=== PATIENT | male | born 1950 | race Caucasian/White ===

== ENCOUNTER 2018-01-04 10:48 | Inpatient (IN) | payer OTHER ==
[~2018-01-04] VITALS: Ht 180.3 cm; Wt 86.2 kg
[~2018-01-04 10:48] MED LIST: CRESTOR5 MG; EXFORGE HCT 101 EACH
[2018-01-04] MEDS ORDERED: COZAAR25 MG PO (11:06)
[2018-01-04] MEDS ORDERED: ASPIRIN EC81 MG PO (11:06)
== END 2018-01-11 13:51 | disposition home or self-care (01) | DRG 445 ==
LOC: ER 10:48 → SEC-K 20:38 → MEDJ 21:52
PROC: BW40ZZZ Ultrasonography of Abdomen (ICD-10-PCS; 2018-01-04)
PROC: 30233N1 Transfusion of Nonautologous Red Blood Cells into Peripheral Vein, Percutaneous Approach (ICD-10-PCS; principal; 2018-01-05)
PROC: BW25YZZ Computerized Tomography (CT Scan) of Chest, Abdomen and Pelvis using Other Contrast (ICD-10-PCS; 2018-01-08)
DX: K81.0 Acute cholecystitis (principal); N17.8 Other acute kidney failure; E78.4 Other hyperlipidemia; D64.89 Other specified anemias; I12.9 Hypertensive chronic kidney disease with stage 1 through stage 4 chronic kidney disease, or unspecified chronic kidney disease; N18.1 Chronic kidney disease, stage 1; K29.60 Other gastritis without bleeding

== ENCOUNTER 2018-02-13 15:49 | Outpatient (CLI) | payer OTHER ==
[~2018-02-13 15:49] MED LIST changes: +ASPIRIN EC81 MG PO; +COZAAR25 MG PO
== END 2018-02-13 15:55 | disposition home or self-care (01) ==
LOC: RAD 15:49
DX: D47.2 Monoclonal gammopathy (principal); D51.1 Vitamin B12 deficiency anemia due to selective vitamin B12 malabsorption with proteinuria; D51.3 Other dietary vitamin B12 deficiency anemia; I10 Essential (primary) hypertension; D63.1 Anemia in chronic kidney disease; N18.3 Chronic kidney disease, stage 3 (moderate)

== ENCOUNTER → 2018-02-15 06:18 | Outpatient (CLI) | payer OTHER | END | disposition home or self-care (01) | LOC: LAB 06:18 | DX: D47.2 Monoclonal gammopathy (principal); C90.00 Multiple myeloma not having achieved remission; D51.1 Vitamin B12 deficiency anemia due to selective vitamin B12 malabsorption with proteinuria; D51.3 Other dietary vitamin B12 deficiency anemia; I10 Essential (primary) hypertension; D63.1 Anemia in chronic kidney disease; N18.3 Chronic kidney disease, stage 3 (moderate); D50.8 Other iron deficiency anemias; D51.8 Other vitamin B12 deficiency anemias; D51.0 Vitamin B12 deficiency anemia due to intrinsic factor deficiency; R80.8 Other proteinuria ==

== ENCOUNTER 2018-04-19 05:39 | Day surgery (SDC) | payer OTHER ==
[~2018-04-19 05:39] MED LIST changes: +B-100 COMPLEX100 MG PO; +VITAMIN B-121000 MCG PO; +[UNRECOGNIZED DRUG - OTHER] SL
== END 2018-04-19 17:40 | disposition home or self-care (01) ==
LOC: CIR.AMB 05:39
DX: C90.00 Multiple myeloma not having achieved remission (principal)
CPT/HCPCS: 36561; C1751

== ENCOUNTER → 2018-07-12 06:29 | Outpatient (CLI) | payer OTHER | END | disposition home or self-care (01) | LOC: LAB 06:29 | DX: C90.00 Multiple myeloma not having achieved remission (principal) ==

== ENCOUNTER → 2018-07-16 06:46 | Outpatient (CLI) | payer OTHER | END | disposition home or self-care (01) | LOC: LAB 06:46 | DX: C90.00 Multiple myeloma not having achieved remission (principal) ==

== ENCOUNTER → 2018-07-20 | Outpatient (CLI) | payer OTHER | END | disposition home or self-care (01) | LOC: NUCLEAR 07:14 | DX: C90.00 Multiple myeloma not having achieved remission (principal) | CPT/HCPCS: 78472; 78496; A9560 ==

== ENCOUNTER 2018-08-21 06:29 | Outpatient (CLI) | payer OTHER | END 2018-08-21 06:33 | disposition home or self-care (01) | LOC: LAB 06:29 | DX: D51.3 Other dietary vitamin B12 deficiency anemia (principal); C90.00 Multiple myeloma not having achieved remission; I10 Essential (primary) hypertension ==

== ENCOUNTER 2019-01-17 10:48 | Inpatient (IN) | payer OTHER ==
[~2019-01-17] VITALS: Ht 180.3 cm; Wt 79.4 kg
[2019-01-18] MEDS ORDERED: REVLIMID15 MG (12:53)
[2019-01-18] MEDS ORDERED: VALTREX1000 MG (12:54)
[2019-01-18] MEDS ORDERED: DULOXETINE HCL60 MG (12:54)
[2019-01-18] MEDS ORDERED: CARDURA1 MG (12:54)
[2019-01-18] MEDS ORDERED: LASIX20 MG (12:54)
[2019-01-18] MEDS ORDERED: NORVASC10 MG (12:55)
[2019-01-18] MEDS ORDERED: CRESTOR20 MG (12:56)
[2019-01-18] MEDS ORDERED: DEXAMETHASONE6 MG (12:56)
[2019-01-18] MEDS ORDERED: ZOFRAN8 MG (12:56)
[2019-01-18] MEDS ORDERED: ASA81 MG (13:56)
[2019-01-21] MEDS ORDERED: DEXAMETHASONE4 MG (14:32)
== END 2019-01-24 18:45 | disposition home or self-care (01) | DRG 637 ==
LOC: ER 10:48 → MEDJ 01-18 13:18 → SEC-K 01-18 13:18 → MEDJ 01-18 23:40
PROVIDERS: ADMIT Specialist
PROC: 8E0ZXY6 Isolation (ICD-10-PCS; principal; 2019-01-18)
DX: E11.00 Type 2 diabetes mellitus with hyperosmolarity without nonketotic hyperglycemic-hyperosmolar coma (NKHHC) (principal); D61.1 Drug-induced aplastic anemia; N17.8 Other acute kidney failure; C90.00 Multiple myeloma not having achieved remission; E27.3 Drug-induced adrenocortical insufficiency; K92.1 Melena; Z79.4 Long term (current) use of insulin; E11.22 Type 2 diabetes mellitus with diabetic chronic kidney disease; I12.9 Hypertensive chronic kidney disease with stage 1 through stage 4 chronic kidney disease, or unspecified chronic kidney disease; N18.3 Chronic kidney disease, stage 3 (moderate); E11.65 Type 2 diabetes mellitus with hyperglycemia; E86.0 Dehydration; E87.8 Other disorders of electrolyte and fluid balance, not elsewhere classified; T38.0X5A Adverse effect of glucocorticoids and synthetic analogues, initial encounter; D63.8 Anemia in other chronic diseases classified elsewhere; T45.1X5A Adverse effect of antineoplastic and immunosuppressive drugs, initial encounter; Z92.21 Personal history of antineoplastic chemotherapy

== ENCOUNTER 2019-04-23 06:43 | Outpatient (CLI) | payer OTHER ==
[~2019-04-23 06:43] MED LIST changes: +ASA81 MG; +CARDURA1 MG; +CRESTOR20 MG; +DEXAMETHASONE4 MG; +DEXAMETHASONE6 MG; +DULOXETINE HCL60 MG; +LASIX20 MG; +NORVASC10 MG; +REVLIMID15 MG; +VALTREX1000 MG; +ZOFRAN8 MG
[2019-04-24] MEDS ORDERED: AMOX-CLAV 500-1 EACH PO (15:01)
[2019-04-24] MEDS ORDERED: DICLOFENAC SODI75 MG PO (15:01)
== END 2019-04-23 06:49 | disposition home or self-care (01) ==
LOC: LAB 06:43
DX: C90.00 Multiple myeloma not having achieved remission (principal); I10 Essential (primary) hypertension

== ENCOUNTER 2019-04-24 11:26 | Emergency (ER) | payer OTHER ==
[~2019-04-24] VITALS: Ht 180.3 cm; Wt 81.6 kg
[2019-04-24] MEDS ORDERED: AMOX-CLAV 500-1 EACH PO (15:01)
[2019-04-24] MEDS ORDERED: DICLOFENAC SODI75 MG PO (15:01)
== END 2019-04-24 15:23 | disposition home or self-care (01) ==
LOC: ER 11:26
DX: L03.114 Cellulitis of left upper limb (principal)

== ENCOUNTER → 2019-05-29 06:34 | Outpatient (CLI) | payer OTHER ==
[~2019-05-29 06:34] MED LIST changes: +AMOX-CLAV 500-1 EACH PO; +DICLOFENAC SODI75 MG PO
== END | disposition home or self-care (01) ==
LOC: LAB 06:34
DX: D50.8 Other iron deficiency anemias (principal); I10 Essential (primary) hypertension; D47.2 Monoclonal gammopathy; C90.00 Multiple myeloma not having achieved remission; D63.1 Anemia in chronic kidney disease; N18.3 Chronic kidney disease, stage 3 (moderate); D51.1 Vitamin B12 deficiency anemia due to selective vitamin B12 malabsorption with proteinuria; Z94.81 Bone marrow transplant status

== ENCOUNTER → 2019-07-24 06:14 | Outpatient (CLI) | payer OTHER | END | disposition home or self-care (01) | LOC: LAB 06:14 | DX: C90.00 Multiple myeloma not having achieved remission (principal); Z94.81 Bone marrow transplant status; D51.1 Vitamin B12 deficiency anemia due to selective vitamin B12 malabsorption with proteinuria; D51.3 Other dietary vitamin B12 deficiency anemia; D63.1 Anemia in chronic kidney disease; N18.3 Chronic kidney disease, stage 3 (moderate); D47.2 Monoclonal gammopathy; D69.8 Other specified hemorrhagic conditions ==

== ENCOUNTER → 2019-09-10 06:18 | Outpatient (CLI) | payer OTHER | END | disposition home or self-care (01) | LOC: LAB 06:18 | PROVIDERS: ATTEND Internal Medicine Hematology & Oncology | DX: D50.8 Other iron deficiency anemias (principal); D69.6 Thrombocytopenia, unspecified; D51.8 Other vitamin B12 deficiency anemias; D47.2 Monoclonal gammopathy; C90.00 Multiple myeloma not having achieved remission; Z94.81 Bone marrow transplant status; D51.1 Vitamin B12 deficiency anemia due to selective vitamin B12 malabsorption with proteinuria; D51.3 Other dietary vitamin B12 deficiency anemia; D63.1 Anemia in chronic kidney disease; N18.3 Chronic kidney disease, stage 3 (moderate) ==

== ENCOUNTER 2020-01-27 21:08 | Emergency (ER) | payer OTHER ==
[~2020-01-27] VITALS: Ht 180.3 cm; Wt 88.5 kg
== END 2020-01-28 02:08 | disposition home or self-care (01) ==
LOC: ER 21:08
DX: I16.0 Hypertensive urgency (principal); I10 Essential (primary) hypertension; U07.1 COVID-19

== ENCOUNTER 2020-03-26 10:24 | Emergency (ER) | payer OTHER ==
[~2020-03-26] VITALS: Ht 180.3 cm; Wt 86.2 kg
[2020-03-26] MEDS ORDERED: INTEGRA PLUS C1 EACH (10:33)
[2020-03-26] MEDS ORDERED: PREGABALIN75 MG (10:34)
== END 2020-03-26 13:49 | disposition home or self-care (01) ==
LOC: ER 10:24
DX: L27.1 Localized skin eruption due to drugs and medicaments taken internally (principal); T43.025A Adverse effect of tetracyclic antidepressants, initial encounter

== ENCOUNTER 2020-04-22 06:31 | Outpatient (CLI) | payer OTHER ==
[~2020-04-22 06:31] MED LIST changes: +INTEGRA PLUS C1 EACH; +PREGABALIN75 MG
== END 2020-04-22 06:39 | disposition home or self-care (01) ==
LOC: LAB 06:31
PROVIDERS: ATTEND Internal Medicine Hematology & Oncology
DX: D50.8 Other iron deficiency anemias (principal); I10 Essential (primary) hypertension; D47.2 Monoclonal gammopathy; C90.00 Multiple myeloma not having achieved remission; Z94.81 Bone marrow transplant status; D51.1 Vitamin B12 deficiency anemia due to selective vitamin B12 malabsorption with proteinuria; D51.3 Other dietary vitamin B12 deficiency anemia; D63.1 Anemia in chronic kidney disease

== ENCOUNTER 2020-08-25 06:13 | Outpatient (CLI) | payer OTHER | END 2020-08-25 06:18 | disposition home or self-care (01) | LOC: LAB 06:13 | PROVIDERS: ATTEND Internal Medicine Hematology & Oncology | DX: C90.00 Multiple myeloma not having achieved remission (principal); Z94.81 Bone marrow transplant status; D51.1 Vitamin B12 deficiency anemia due to selective vitamin B12 malabsorption with proteinuria; D51.3 Other dietary vitamin B12 deficiency anemia; I10 Essential (primary) hypertension; D63.1 Anemia in chronic kidney disease; N18.30 Chronic kidney disease, stage 3 unspecified; D47.2 Monoclonal gammopathy ==

== ENCOUNTER 2020-09-24 06:23 | Outpatient (CLI) | payer OTHER | END 2020-09-24 06:24 | disposition home or self-care (01) | LOC: LAB 06:23 | PROVIDERS: ATTEND Internal Medicine Hematology & Oncology | DX: D50.8 Other iron deficiency anemias (principal); I10 Essential (primary) hypertension; R74.02 Elevation of levels of lactic acid dehydrogenase [LDH]; K76.89 Other specified diseases of liver; D51.8 Other vitamin B12 deficiency anemias; D47.2 Monoclonal gammopathy; C90.00 Multiple myeloma not having achieved remission; R97.0 Elevated carcinoembryonic antigen [CEA]; R97.8 Other abnormal tumor markers; R97.20 Elevated prostate specific antigen [PSA]; Z94.81 Bone marrow transplant status; D51.3 Other dietary vitamin B12 deficiency anemia ==

== ENCOUNTER 2020-12-07 06:12 | Outpatient (CLI) | payer OTHER | END 2020-12-07 06:13 | disposition home or self-care (01) | LOC: LAB 06:12 | PROVIDERS: ATTEND Internal Medicine Hematology & Oncology | DX: C90.00 Multiple myeloma not having achieved remission (principal); Z94.81 Bone marrow transplant status; D51.1 Vitamin B12 deficiency anemia due to selective vitamin B12 malabsorption with proteinuria; I10 Essential (primary) hypertension; D63.1 Anemia in chronic kidney disease; N18.30 Chronic kidney disease, stage 3 unspecified; D47.2 Monoclonal gammopathy; R74.02 Elevation of levels of lactic acid dehydrogenase [LDH]; K76.89 Other specified diseases of liver ==

== ENCOUNTER 2020-12-12 10:38 | Emergency (ER) | payer OTHER ==
[~2020-12-12] VITALS: Ht 180.3 cm; Wt 90.7 kg
[2020-12-12] MEDS ORDERED: TRADJENTA5 MG (10:59)
[2020-12-12] MEDS ORDERED: REVLIMID15 MG (10:59)
[2020-12-12] MEDS ORDERED: ABANEU-SL TABL1 EACH (11:00)
[2020-12-12] MEDS ORDERED: VALACYCLOVIR500 MG (11:00)
== END 2020-12-12 16:32 | disposition home or self-care (01) ==
LOC: ER 10:38
DX: S00.83XA Contusion of other part of head, initial encounter (principal); W18.09XA Striking against other object with subsequent fall, initial encounter; Y93.89 Activity, other specified; Y92.098 Other place in other non-institutional residence as the place of occurrence of the external cause; Y99.8 Other external cause status

== ENCOUNTER 2021-01-21 06:36 | Emergency (ER) | payer OTHER ==
[~2021-01-21] VITALS: Ht 180.3 cm; Wt 87.5 kg
[~2021-01-21 06:36] MED LIST changes: +ABANEU-SL TABL1 EACH; +TRADJENTA5 MG; +VALACYCLOVIR500 MG
[2021-01-21] MEDS ORDERED: KETO10TA2 PO (10:21)
[2021-01-21] MEDS ORDERED: NORFLEX100MG PO (10:21)
== END 2021-01-21 10:23 | disposition home or self-care (01) ==
LOC: ER 06:36
DX: M54.2 Cervicalgia (principal)

== ENCOUNTER 2021-02-02 04:04 | Emergency (ER) | payer OTHER ==
[~2021-02-02] VITALS: Ht 180.3 cm; Wt 86.2 kg
[~2021-02-02 04:04] MED LIST changes: +KETO10TA2 PO; +NORFLEX100MG PO
== END 2021-02-02 10:03 | disposition home or self-care (01) ==
LOC: ER 04:04
DX: M62.81 Muscle weakness (generalized) (principal); R27.8 Other lack of coordination; R20.2 Paresthesia of skin; C90.00 Multiple myeloma not having achieved remission

== ENCOUNTER 2021-02-04 06:04 | Inpatient (IN) | payer OTHER ==
[~2021-02-04] VITALS: Ht 180.3 cm; Wt 86.2 kg
[2021-02-04] MEDS ORDERED: PLAVIX75 MG (06:18)
--- NOTE | 2021-02-04 06:33 | NUR ---
PTE ALERTA Y ORIENTADA EN RYLEE BOUCHRA ESFERAS, REFIERE DOLOR DE YE DESDE EL ALICIA PARA EL CUAL RECIBIO TX, SHARON COOPER CONTINUADO CON EL MISMO, ADICIONAL INDICA DEBILIDAD EN EL LADO LT DEL CUERPO PARA EL CUAL RECIBIO TX, SHARON COOPER DESEAN INCREMENTANDO CON TX DE QUIMIOTERAPIAS. SE UBICA PTE EN AREA DE OBSERVACION-AISLAMIENTO.
--- NOTE | 2021-02-04 08:25 | NUR ---
PACIENTE EVALUADO POR MD. SE LE ORIENTA SOBRE TRATAMIENTO A SEGUIR. SE CANALIZA VENA EN BRAZO DERECHO, AREA DE VENOPUNCION GUANACO DE EDEMA Y/O ENROJECIMIENTO SE EXTRAE MUESTRAS DE LABORATORIO. SE ADMINISTRA MEDICAMENTO BRYAN ORDEN MEDICA, NO PRESENTA REACCION ADVERSA AL MOMENTO. SE MANTIENE BAJO OBSERVACION POR CAMBIOS.
[2021-02-10] MEDS ORDERED: INTEGRA PLUS C1 EACH PO (11:42)
[2021-02-10] MEDS ORDERED: CLOPIDOGREL BIS75 MG PO (11:43)
[2021-02-10] MEDS ORDERED: LOSARTAN POTAS100 MG PO (11:43)
[2021-02-10] MEDS ORDERED: NIFEDIPINE ER30 M1 PO (11:46)
[2021-02-10] MEDS ORDERED: CRESTOR5 MG PO (11:47)
[2021-02-10] MEDS ORDERED: HYDRALAZINE HCL50 MG PO (11:47)
[2021-02-10] MEDS ORDERED: ST. JOSEPH ASPI81 M2 PO (11:48)
[2021-02-10] MEDS ORDERED: HYDRODIURIL12.5 MG PO (11:48)
[2021-02-10] MEDS ORDERED: TRADJENTA5 MG PO (11:49)
[2021-02-10] MEDS ORDERED: ABANEU-SL TABL1 EACH SL (11:50)
== END 2021-02-10 15:31 | disposition home or self-care (01) | DRG 56 ==
LOC: ER 06:04 → SEC-K 12:35 → MEDI 02-05 20:48
PROVIDERS: ADMIT Internal Medicine; ATTEND Internal Medicine
PROC: B030Y0Z Magnetic Resonance Imaging (MRI) of Brain using Other Contrast, Unenhanced and Enhanced (ICD-10-PCS; principal; 2021-02-04)
PROC: B345ZZZ Ultrasonography of Bilateral Common Carotid Arteries (ICD-10-PCS; 2021-02-04)
PROC: B348ZZZ Ultrasonography of Bilateral Internal Carotid Arteries (ICD-10-PCS; 2021-02-04)
PROC: B24BZZZ Ultrasonography of Heart with Aorta (ICD-10-PCS; 2021-02-04)
PROC: 4A12X4Z Monitoring of Cardiac Electrical Activity, External Approach (ICD-10-PCS; 2021-02-04)
PROC: 8E0ZXY6 Isolation (ICD-10-PCS; 2021-02-04)
DX: I69.354 Hemiplegia and hemiparesis following cerebral infarction affecting left non-dominant side (principal); I63.81 Other cerebral infarction due to occlusion or stenosis of small artery; C90.00 Multiple myeloma not having achieved remission; I10 Essential (primary) hypertension; E11.9 Type 2 diabetes mellitus without complications; Z79.4 Long term (current) use of insulin; E78.5 Hyperlipidemia, unspecified; Z20.822 Contact with and (suspected) exposure to COVID-19
CPT/HCPCS: 70545

== ENCOUNTER 2021-05-05 06:51 | Outpatient (CLI) | payer OTHER ==
[~2021-05-05 06:51] MED LIST changes: +ABANEU-SL TABL1 EACH SL; +CLOPIDOGREL BIS75 MG PO; +CRESTOR5 MG PO; +HYDRALAZINE HCL50 MG PO; +HYDRODIURIL12.5 MG PO; +INTEGRA PLUS C1 EACH PO; +LOSARTAN POTAS100 MG PO; +NIFEDIPINE ER30 M1 PO; +PLAVIX75 MG; +ST. JOSEPH ASPI81 M2 PO; +TRADJENTA5 MG PO
== END 2021-05-05 06:59 | disposition home or self-care (01) ==
LOC: LAB 06:51
PROVIDERS: ATTEND Internal Medicine
DX: I10 Essential (primary) hypertension (principal); C90.00 Multiple myeloma not having achieved remission; E11.9 Type 2 diabetes mellitus without complications; E11.40 Type 2 diabetes mellitus with diabetic neuropathy, unspecified; G46.3 Brain stem stroke syndrome; E55.9 Vitamin D deficiency, unspecified

== ENCOUNTER 2021-05-11 06:24 | Outpatient (CLI) | payer OTHER | END 2021-05-11 06:25 | disposition home or self-care (01) | LOC: LAB 06:24 | PROVIDERS: ATTEND Internal Medicine Hematology & Oncology | DX: D50.8 Other iron deficiency anemias (principal); I10 Essential (primary) hypertension; R74.02 Elevation of levels of lactic acid dehydrogenase [LDH]; K76.89 Other specified diseases of liver ==

== ENCOUNTER → 2021-05-21 06:15 | Outpatient (CLI) | payer OTHER | END | disposition home or self-care (01) | LOC: LAB 06:15 | PROVIDERS: ATTEND Internal Medicine Hematology & Oncology | DX: D50.8 Other iron deficiency anemias (principal); R74.02 Elevation of levels of lactic acid dehydrogenase [LDH]; K76.89 Other specified diseases of liver; D51.8 Other vitamin B12 deficiency anemias; D47.2 Monoclonal gammopathy; C90.00 Multiple myeloma not having achieved remission; Z94.81 Bone marrow transplant status; D51.1 Vitamin B12 deficiency anemia due to selective vitamin B12 malabsorption with proteinuria; D51.3 Other dietary vitamin B12 deficiency anemia; D63.1 Anemia in chronic kidney disease; N18.30 Chronic kidney disease, stage 3 unspecified; I67.89 Other cerebrovascular disease; I69.352 Hemiplegia and hemiparesis following cerebral infarction affecting left dominant side; I67.9 Cerebrovascular disease, unspecified ==

== ENCOUNTER 2021-09-27 06:15 | Outpatient (CLI) | payer OTHER | END 2021-09-27 06:16 | disposition home or self-care (01) | LOC: LAB 06:15 | PROVIDERS: ATTEND Internal Medicine Hematology & Oncology | DX: I10 Essential (primary) hypertension (principal); C90.00 Multiple myeloma not having achieved remission; E11.40 Type 2 diabetes mellitus with diabetic neuropathy, unspecified; G46.3 Brain stem stroke syndrome; E55.9 Vitamin D deficiency, unspecified; D50.8 Other iron deficiency anemias; R74.02 Elevation of levels of lactic acid dehydrogenase [LDH]; K76.89 Other specified diseases of liver; D51.8 Other vitamin B12 deficiency anemias; D47.2 Monoclonal gammopathy; Z94.81 Bone marrow transplant status; D51.1 Vitamin B12 deficiency anemia due to selective vitamin B12 malabsorption with proteinuria; D51.3 Other dietary vitamin B12 deficiency anemia; I67.89 Other cerebrovascular disease; I69.352 Hemiplegia and hemiparesis following cerebral infarction affecting left dominant side; I67.9 Cerebrovascular disease, unspecified ==

== ENCOUNTER 2022-01-06 06:11 | Outpatient (CLI) | payer OTHER | END 2022-01-06 06:12 | disposition home or self-care (01) | LOC: LAB 06:11 | PROVIDERS: ATTEND Internal Medicine Hematology & Oncology | DX: D50.8 Other iron deficiency anemias (principal); R74.02 Elevation of levels of lactic acid dehydrogenase [LDH]; I10 Essential (primary) hypertension; R97.8 Other abnormal tumor markers; R97.20 Elevated prostate specific antigen [PSA]; K76.89 Other specified diseases of liver ==

== ENCOUNTER 2022-01-10 08:52 | Emergency (ER) | payer OTHER ==
[~2022-01-10] VITALS: Ht 175.3 cm; Wt 86.2 kg
== END 2022-01-10 13:35 | disposition home or self-care (01) ==
LOC: ER 08:52
DX: R42 Dizziness and giddiness (principal); I10 Essential (primary) hypertension

== ENCOUNTER 2022-03-08 10:25 | Outpatient (CLI) | payer OTHER | END 2022-03-08 10:30 | disposition home or self-care (01) | LOC: RAD 10:25 | PROVIDERS: ATTEND Physical Medicine & Rehabilitation | DX: M25.511 Pain in right shoulder (principal); M75.121 Complete rotator cuff tear or rupture of right shoulder, not specified as traumatic ==

== ENCOUNTER 2022-03-10 18:59 | Emergency (ER) | payer OTHER ==
[~2022-03-10] VITALS: Ht 181.6 cm; Wt 86.2 kg
[2022-03-11] MEDS ORDERED: ZYNCOF 20-400120 ML PO (03:01)
[2022-03-11] MEDS ORDERED: ALBUTEROL2.5 MG/3 M IH (03:01)
== END 2022-03-11 03:07 ==
LOC: ER 18:59
DX: J10.1 Influenza due to other identified influenza virus with other respiratory manifestations (principal); J06.9 Acute upper respiratory infection, unspecified; E11.9 Type 2 diabetes mellitus without complications; I10 Essential (primary) hypertension; Z86.73 Personal history of transient ischemic attack (TIA), and cerebral infarction without residual deficits; Z95.828 Presence of other vascular implants and grafts; Z79.82 Long term (current) use of aspirin; Z79.02 Long term (current) use of antithrombotics/antiplatelets; Z20.822 Contact with and (suspected) exposure to COVID-19

== ENCOUNTER 2022-04-22 06:41 | Outpatient (CLI) | payer OTHER ==
[~2022-04-22 06:41] MED LIST changes: +ALBUTEROL2.5 MG/3 M IH; +ZYNCOF 20-400120 ML PO
== END 2022-04-22 06:47 | disposition home or self-care (01) ==
LOC: LAB 06:41
PROVIDERS: ATTEND Orthopaedic Surgery
DX: D64.9 Anemia, unspecified (principal); D68.8 Other specified coagulation defects; N39.0 Urinary tract infection, site not specified; A49.02 Methicillin resistant Staphylococcus aureus infection, unspecified site; E88.9 Metabolic disorder, unspecified

== ENCOUNTER 2022-04-27 12:32 | Outpatient (CLI) | payer OTHER | END 2022-04-27 12:33 | disposition home or self-care (01) | LOC: LAB 12:32 | PROVIDERS: ATTEND Orthopaedic Surgery | DX: I49.9 Cardiac arrhythmia, unspecified (principal); I10 Essential (primary) hypertension; Z76.89 Persons encountering health services in other specified circumstances ==

== ENCOUNTER 2022-05-02 05:00 | Day surgery (SDC) | payer OTHER ==
[2022-05-02] MEDS ORDERED: DOXYCYCLINE HY100 MG PO (12:41)
== END 2022-05-02 18:10 | disposition home or self-care (01) ==
LOC: CIR.AMB 05:00
PROVIDERS: ATTEND Orthopaedic Surgery
DX: M75.121 Complete rotator cuff tear or rupture of right shoulder, not specified as traumatic (principal); M17.11 Unilateral primary osteoarthritis, right knee; M75.21 Bicipital tendinitis, right shoulder; M25.811 Other specified joint disorders, right shoulder; M19.011 Primary osteoarthritis, right shoulder; M75.41 Impingement syndrome of right shoulder; I10 Essential (primary) hypertension; E11.40 Type 2 diabetes mellitus with diabetic neuropathy, unspecified; E11.29 Type 2 diabetes mellitus with other diabetic kidney complication; N28.9 Disorder of kidney and ureter, unspecified

== ENCOUNTER 2022-07-02 15:11 | Emergency (ER) | payer OTHER ==
[~2022-07-02] VITALS: Ht 180.3 cm; Wt 88.5 kg
[~2022-07-02 15:11] MED LIST changes: +DOXYCYCLINE HY100 MG PO
== END 2022-07-02 17:54 | disposition home or self-care (01) ==
LOC: ER 15:11
DX: J40 Bronchitis, not specified as acute or chronic (principal); Z85.89 Personal history of malignant neoplasm of other organs and systems; I10 Essential (primary) hypertension; E11.9 Type 2 diabetes mellitus without complications

== ENCOUNTER 2022-07-04 06:11 | Outpatient (CLI) | payer OTHER | END 2022-07-04 06:12 | disposition home or self-care (01) | LOC: LAB 06:11 | DX: I10 Essential (primary) hypertension (principal); D64.1 Secondary sideroblastic anemia due to disease; N40.0 Benign prostatic hyperplasia without lower urinary tract symptoms; R73.01 Impaired fasting glucose; E78.00 Pure hypercholesterolemia, unspecified ==

== ENCOUNTER 2022-07-27 06:10 | Outpatient (CLI) | payer OTHER | END 2022-07-27 06:11 | disposition home or self-care (01) | LOC: LAB 06:10 | PROVIDERS: ATTEND Internal Medicine Hematology & Oncology | DX: D50.8 Other iron deficiency anemias (principal); R74.02 Elevation of levels of lactic acid dehydrogenase [LDH]; K76.89 Other specified diseases of liver; D47.2 Monoclonal gammopathy; C90.00 Multiple myeloma not having achieved remission; D51.1 Vitamin B12 deficiency anemia due to selective vitamin B12 malabsorption with proteinuria; D51.3 Other dietary vitamin B12 deficiency anemia; D63.1 Anemia in chronic kidney disease; N18.30 Chronic kidney disease, stage 3 unspecified; I67.89 Other cerebrovascular disease; I69.352 Hemiplegia and hemiparesis following cerebral infarction affecting left dominant side; I67.9 Cerebrovascular disease, unspecified ==

== ENCOUNTER 2022-08-17 06:09 | Outpatient (CLI) | payer OTHER | END 2022-08-17 06:22 | disposition home or self-care (01) | LOC: LAB 06:09 | PROVIDERS: ATTEND Internal Medicine | DX: I10 Essential (primary) hypertension (principal); C90.00 Multiple myeloma not having achieved remission; E11.40 Type 2 diabetes mellitus with diabetic neuropathy, unspecified; G46.3 Brain stem stroke syndrome; E78.9 Disorder of lipoprotein metabolism, unspecified; E55.9 Vitamin D deficiency, unspecified; Z94.81 Bone marrow transplant status; D51.1 Vitamin B12 deficiency anemia due to selective vitamin B12 malabsorption with proteinuria; D51.3 Other dietary vitamin B12 deficiency anemia; D63.1 Anemia in chronic kidney disease; D47.2 Monoclonal gammopathy; I67.89 Other cerebrovascular disease; I69.352 Hemiplegia and hemiparesis following cerebral infarction affecting left dominant side; I67.9 Cerebrovascular disease, unspecified ==

== ENCOUNTER 2022-11-11 06:15 | Outpatient (CLI) | payer OTHER | END 2022-11-11 06:17 | disposition home or self-care (01) | LOC: LAB 06:15 | PROVIDERS: ATTEND Internal Medicine | DX: I10 Essential (primary) hypertension (principal); C90.00 Multiple myeloma not having achieved remission; E11.9 Type 2 diabetes mellitus without complications; E11.40 Type 2 diabetes mellitus with diabetic neuropathy, unspecified; G46.3 Brain stem stroke syndrome; E78.9 Disorder of lipoprotein metabolism, unspecified; E55.9 Vitamin D deficiency, unspecified ==

== ENCOUNTER → 2022-12-20 06:12 | Outpatient (CLI) | payer OTHER | END | disposition home or self-care (01) | LOC: LAB 06:12 | PROVIDERS: ATTEND Internal Medicine Hematology & Oncology | DX: C90.00 Multiple myeloma not having achieved remission (principal); Z94.81 Bone marrow transplant status; D51.1 Vitamin B12 deficiency anemia due to selective vitamin B12 malabsorption with proteinuria; D51.3 Other dietary vitamin B12 deficiency anemia; D63.1 Anemia in chronic kidney disease; N18.30 Chronic kidney disease, stage 3 unspecified; D47.2 Monoclonal gammopathy; I67.89 Other cerebrovascular disease; I69.352 Hemiplegia and hemiparesis following cerebral infarction affecting left dominant side; I67.9 Cerebrovascular disease, unspecified; D50.8 Other iron deficiency anemias; R74.02 Elevation of levels of lactic acid dehydrogenase [LDH]; K76.89 Other specified diseases of liver ==

== ENCOUNTER 2023-02-20 06:07 | Outpatient (CLI) | payer OTHER ==
[2023-02-20 08:04] LABS: HEMATOCRIT 41.4 % (39.0-48.0); HEMOGLOBIN 14.2 g/dL (13-16.00); MEAN CELL VOLUME 91.5 fL (80.0-100.00); MEAN CORPUSCULAR HEMOGLOBIN 31.4 pg (27.00-32.0); MEAN CORPUSCULAR HGB CONC 34.3 g/dl (32.0-36.0); PLATELET COUNT 202 K/uL (150-450); RED BLOOD COUNT 4.53 M/uL (4.00-6.00)
[2023-02-20 08:33] LABS: ALBUMIN 3.8 gm/dL (3.4-5.0); BILIRUBIN TOTAL 1.09 mg/dL (0.3-1.2); CREATININE SERUM 1.29 mg/dL (0.70-1.30); GFR 54.9; GLOBULINA 3.3 G/DL (2.4-3.5); POTASSIUM 3.66 mEq/L (3.5-5.1); TOTAL PROTEIN 7.1 gm/dL (6.4-8.2)
== END 2023-02-20 06:08 | disposition home or self-care (01) ==
LOC: LAB 06:07
PROVIDERS: ATTEND Internal Medicine Hematology & Oncology
DX: C90.00 Multiple myeloma not having achieved remission (principal); Z94.81 Bone marrow transplant status; D51.1 Vitamin B12 deficiency anemia due to selective vitamin B12 malabsorption with proteinuria; D51.3 Other dietary vitamin B12 deficiency anemia; I10 Essential (primary) hypertension; D63.1 Anemia in chronic kidney disease; D47.2 Monoclonal gammopathy; I67.89 Other cerebrovascular disease; I69.352 Hemiplegia and hemiparesis following cerebral infarction affecting left dominant side; I67.9 Cerebrovascular disease, unspecified; D50.8 Other iron deficiency anemias; R74.02 Elevation of levels of lactic acid dehydrogenase [LDH]; K76.89 Other specified diseases of liver

== ENCOUNTER 2023-03-07 06:15 | Outpatient (CLI) | payer OTHER ==
[2023-03-07 07:29] LABS: URINE APPEARANCE Clear; URINE BILIRRUBIN Negative (NEGATIVE); URINE BLOOD Negative; URINE COLOR Yellow; URINE LEUKOCYTE Negative; URINE NITRATE Negative; URINE PROTEIN Negative (NEGATIVE); URINE UROBILINOGEN 0.2 E.U./dl
[2023-03-07 07:33] LABS: URINE RBC 3.5 uL (0.0-20.8)
[2023-03-07 07:38] LABS: URINE EPITHELIAL CELLS 1.2 uL (0.0-38.8); URINE GLUCOSE 100 MG/DL (NEGATIVE); URINE WBC 0.3 uL (0.0-23.2)
[2023-03-07 07:46] LABS: HEMATOCRIT 40.7 % (39.0-48.0); HEMOGLOBIN 13.6 g/dL (13-16.00); MEAN CELL VOLUME 92.2 fL (80.0-100.00); MEAN CORPUSCULAR HEMOGLOBIN 30.8 pg (27.00-32.0); MEAN CORPUSCULAR HGB CONC 33.4 g/dl (32.0-36.0); PLATELET COUNT 203 K/uL (150-450); RED BLOOD COUNT 4.42 M/uL (4.00-6.00); RED CELL DISTRIBUTION WIDTH 17.3 % (11.5-14.5)
[2023-03-07 08:07] LABS: ERYTHROCYTE SEDIMENTATION RATE 33 mm/hr
[2023-03-07 08:24] LABS: ALBUMIN 3.6 gm/dL (3.4-5.0); ALKALINE PHOSPHATASE 81 U/L (50-136); ALT/SGPT 47 U/L (12-78); ANION GAP 8 (10.0-20.0); AST/SGOT 21 U/L (15-37); BILIRUBIN TOTAL 1.11 mg/dL (0.3-1.2); BLOOD UREA NITROGEN 25 mg/dL (7-18); BUN CREA RATIO 18 (7.0-25.0); CALCIUM 9.5 mg/dL (8.5-10.1); CARBON DIOXIDE 30 mEq/L (21-32); CHLORIDE 110 mmol/L (98-107); CHOL HDL RATIO 3.1 (0-5.0); CHOLESTEROL 156 mg/dL (0-200); FREE TRIODOTIRONINE 2.31 pg/ml (2.18-3.98); GFR 49.96; GLOBULINA 3.2 G/DL (2.4-3.5); GLUCOSE FASTING 144 mg/dL (65-100); HDL 50 mg/dl (40-60); LDL 76 mg/dl (0-130); OSMOLALITY SERUM 292 MOSM/KG (275-295); SODIUM 143 mmol/L (136-145); T4 TOTAL 8.57 UG/DL (4.5-12.1); TOTAL PROTEIN 6.8 gm/dL (6.4-8.2); TRIGLYCERIDES 151 mg/dL (0-150); TSH 0.941 uIU/mL (0.358-3.74); VLDL 30 (0-39)
[2023-03-07 08:41] LABS: C-REACTIVE PROTEIN < 0.29 MG/DL (0.00-0.29)
== END 2023-03-07 06:16 | disposition home or self-care (01) ==
LOC: LAB 06:15
PROVIDERS: ATTEND Internal Medicine
DX: I10 Essential (primary) hypertension (principal); C90.00 Multiple myeloma not having achieved remission; E11.9 Type 2 diabetes mellitus without complications; E11.40 Type 2 diabetes mellitus with diabetic neuropathy, unspecified; G46.3 Brain stem stroke syndrome

== ENCOUNTER 2023-03-13 06:08 | Outpatient (CLI) | payer OTHER ==
[2023-03-13 07:59] LABS: HEMATOCRIT 39.7 % (39.0-48.0); HEMOGLOBIN 13.4 g/dL (13-16.00); MEAN CORPUSCULAR HEMOGLOBIN 31.1 pg (27.00-32.0); MEAN CORPUSCULAR HGB CONC 33.8 g/dl (32.0-36.0); PLATELET COUNT 177 K/uL (150-450); RED BLOOD COUNT 4.32 M/uL (4.00-6.00)
[2023-03-13 08:42] LABS: ALBUMIN 3.8 gm/dL (3.4-5.0); BILIRUBIN TOTAL 1.17 mg/dL (0.3-1.2); CALCIUM 9.3 mg/dL (8.5-10.1); CREATININE SERUM 1.47 mg/dL (0.70-1.30); GFR 47.22; GLOBULINA 3.1 G/DL (2.4-3.5); POTASSIUM 3.79 mEq/L (3.5-5.1); TOTAL PROTEIN 6.9 gm/dL (6.4-8.2)
== END 2023-03-13 06:09 | disposition home or self-care (01) ==
LOC: LAB 06:08
PROVIDERS: ATTEND Internal Medicine Hematology & Oncology
DX: D50.8 Other iron deficiency anemias (principal); R74.02 Elevation of levels of lactic acid dehydrogenase [LDH]; K76.89 Other specified diseases of liver; C90.00 Multiple myeloma not having achieved remission; D51.1 Vitamin B12 deficiency anemia due to selective vitamin B12 malabsorption with proteinuria; D51.3 Other dietary vitamin B12 deficiency anemia; D63.1 Anemia in chronic kidney disease; N18.30 Chronic kidney disease, stage 3 unspecified; D47.2 Monoclonal gammopathy; I67.89 Other cerebrovascular disease; I69.352 Hemiplegia and hemiparesis following cerebral infarction affecting left dominant side; I67.9 Cerebrovascular disease, unspecified; R94.8 Abnormal results of function studies of other organs and systems

== ENCOUNTER 2023-04-18 06:03 | Outpatient (CLI) | payer OTHER ==
[2023-04-18 06:58] LABS: HEMATOCRIT 37.2 % (39.0-48.0); HEMOGLOBIN 12.5 g/dL (13-16.00); MEAN CELL VOLUME 92.6 fL (80.0-100.00); MEAN CORPUSCULAR HEMOGLOBIN 31.1 pg (27.00-32.0); MEAN CORPUSCULAR HGB CONC 33.6 g/dl (32.0-36.0); PLATELET COUNT 210 K/uL (150-450); RED BLOOD COUNT 4.02 M/uL (4.00-6.00); RED CELL DISTRIBUTION WIDTH 17.9 % (11.5-14.5)
[2023-04-18 07:26] LABS: ALBUMIN 3.2 gm/dL (3.4-5.0); BILIRUBIN TOTAL 0.64 mg/dL (0.3-1.2); CALCIUM 8.6 mg/dL (8.5-10.1); CREATININE SERUM 1.51 mg/dL (0.70-1.30); GFR 45.78; GLOBULINA 3.2 G/DL (2.4-3.5); POTASSIUM 3.85 mEq/L (3.5-5.1); TOTAL PROTEIN 6.4 gm/dL (6.4-8.2)
== END 2023-04-18 06:04 | disposition home or self-care (01) ==
LOC: LAB 06:03
PROVIDERS: ATTEND Internal Medicine Hematology & Oncology
DX: C90.00 Multiple myeloma not having achieved remission (principal); Z94.81 Bone marrow transplant status; D51.1 Vitamin B12 deficiency anemia due to selective vitamin B12 malabsorption with proteinuria; D51.3 Other dietary vitamin B12 deficiency anemia; I10 Essential (primary) hypertension; D63.1 Anemia in chronic kidney disease; N18.30 Chronic kidney disease, stage 3 unspecified; I67.89 Other cerebrovascular disease; I69.352 Hemiplegia and hemiparesis following cerebral infarction affecting left dominant side; I67.9 Cerebrovascular disease, unspecified

== ENCOUNTER → 2023-05-17 06:28 | Outpatient (CLI) | payer OTHER ==
[2023-05-17 08:00] LABS: HEMATOCRIT 35.5 % (39.0-48.0); HEMOGLOBIN 12.1 g/dL (13-16.00); MEAN CELL VOLUME 95.3 fL (80.0-100.00); MEAN CORPUSCULAR HEMOGLOBIN 32.6 pg (27.00-32.0); MEAN CORPUSCULAR HGB CONC 34.2 g/dl (32.0-36.0); PLATELET COUNT 192 K/uL (150-450); RED BLOOD COUNT 3.72 M/uL (4.00-6.00); RED CELL DISTRIBUTION WIDTH 18.8 % (11.5-14.5)
[2023-05-17 08:41] LABS: ALBUMIN 3.5 gm/dL (3.4-5.0); BILIRUBIN TOTAL 1.16 mg/dL (0.3-1.2); CALCIUM 8.3 mg/dL (8.5-10.1); CREATININE SERUM 1.56 mg/dL (0.70-1.30); GFR 44.09; GLOBULINA 2.7 G/DL (2.4-3.5); POTASSIUM 4.58 mEq/L (3.5-5.1); TOTAL PROTEIN 6.2 gm/dL (6.4-8.2)
[2023-05-17 09:00] LABS: MANUAL PLATELET COUNT 306
[2023-05-18 16:08] LABS: kappa lambda r 0.98 (0.26-1.65); lambda light 11.2 mg/L (5.7-26.3)
[2023-05-19 10:09] LABS: BETA-2-MICROGLOBULINA 1.6 mg/L (0.6-2.4)
== END | disposition home or self-care (01) ==
LOC: LAB 06:28
PROVIDERS: ATTEND Internal Medicine Hematology & Oncology
DX: C90.00 Multiple myeloma not having achieved remission (principal); D51.1 Vitamin B12 deficiency anemia due to selective vitamin B12 malabsorption with proteinuria; D51.3 Other dietary vitamin B12 deficiency anemia; I10 Essential (primary) hypertension; D63.1 Anemia in chronic kidney disease; N18.30 Chronic kidney disease, stage 3 unspecified; D47.2 Monoclonal gammopathy; I67.89 Other cerebrovascular disease; I69.352 Hemiplegia and hemiparesis following cerebral infarction affecting left dominant side; D50.8 Other iron deficiency anemias; R74.02 Elevation of levels of lactic acid dehydrogenase [LDH]; K76.89 Other specified diseases of liver; D69.6 Thrombocytopenia, unspecified

== ENCOUNTER 2023-06-02 14:42 | Emergency (ER) | payer OTHER ==
[~2023-06-02] VITALS: Ht 180.3 cm; Wt 85.3 kg
[2023-06-02] MEDS ORDERED: FAMOTIDINE/PF 20 MG in 0.9 % SODIUM CHLORIDE 8 ML IV PUSH STA (16:20)
[2023-06-02] MEDS ORDERED: 0.9 % SODIUM CHLORIDE 1,000 ML IV SCH (16:30)
[2023-06-02] MEDS ORDERED: HYOSCYAMINE SULFATE 0.125 MG TAB.SUBL SL ONE (16:30)
[2023-06-02] MEDS ORDERED: ONDANSETRON HCL 2 MG/ML VIAL IV ONE (16:30)
[2023-06-02 17:01] LABS: HEMATOCRIT 40.6 % (39.0-48.0); HEMOGLOBIN 13.8 g/dL (13-16.00); MEAN CELL VOLUME 94.1 fL (80.0-100.00); MEAN CORPUSCULAR HEMOGLOBIN 32.1 pg (27.00-32.0); MEAN CORPUSCULAR HGB CONC 34.1 g/dl (32.0-36.0); PLATELET COUNT 181 K/uL (150-450); RED BLOOD COUNT 4.31 M/uL (4.00-6.00); RED CELL DISTRIBUTION WIDTH 18.1 % (11.5-14.5)
[2023-06-02 17:24] LABS: ALBUMIN 3.9 gm/dL (3.4-5.0); BILIRUBIN TOTAL 1.53 mg/dL (0.3-1.2); BILIRUBIN,CONJUGATED 0.33 mg/dL (0.0-0.2); BILIRUBIN,UNCONJUGATED 1.2 mg/dL (0.0-0.6); CALCIUM 9.8 mg/dL (8.5-10.1); CREATININE SERUM 1.29 mg/dL (0.70-1.30); GFR 54.9; GLOBULINA 3.3 G/DL (2.4-3.5); POTASSIUM 4.48 mEq/L (3.5-5.1); TOTAL PROTEIN 7.2 gm/dL (6.4-8.2)
[2023-06-02] MEDS ORDERED: PEPCID AC20 MG PO (20:40)
[2023-06-02] MEDS ORDERED: ONDANSETRON ODT8 MG PO (20:40)
== END 2023-06-02 20:42 | disposition home or self-care (01) ==
LOC: ER 14:42
PROVIDERS: General Practice
DX: K52.89 Other specified noninfective gastroenteritis and colitis (principal)
CPT/HCPCS: 96365; 96366; 99283; J2405; J3490

== ENCOUNTER 2023-07-04 06:05 | Outpatient (CLI) | payer OTHER ==
[~2023-07-04 06:05] MED LIST changes: +ONDANSETRON ODT8 MG PO; +PEPCID AC20 MG PO
[2023-07-04 07:05] LABS: HEMATOCRIT 38.4 % (39.0-48.0); MEAN CELL VOLUME 96.6 fL (80.0-100.00); MEAN CORPUSCULAR HEMOGLOBIN 32.6 pg (27.00-32.0); MEAN CORPUSCULAR HGB CONC 33.8 g/dl (32.0-36.0); PLATELET COUNT 188 K/uL (150-450); RED BLOOD COUNT 3.97 M/uL (4.00-6.00); RED CELL DISTRIBUTION WIDTH 16.1 % (11.5-14.5)
[2023-07-04 07:35] LABS: ALBUMIN 3.6 gm/dL (3.4-5.0); BILIRUBIN TOTAL 1.08 mg/dL (0.3-1.2); CREATININE SERUM 1.4 mg/dL (0.70-1.30); GFR 49.96; GLOBULINA 2.9 G/DL (2.4-3.5); POTASSIUM 4.5 mEq/L (3.5-5.1); TOTAL PROTEIN 6.5 gm/dL (6.4-8.2)
[2023-07-04 07:41] LABS: MANUAL PLATELET COUNT 244
== END 2023-07-04 15:22 | disposition home or self-care (01) ==
LOC: LAB 06:05
PROVIDERS: ATTEND Internal Medicine Hematology & Oncology
DX: D50.8 Other iron deficiency anemias (principal); I10 Essential (primary) hypertension; R74.02 Elevation of levels of lactic acid dehydrogenase [LDH]; K76.89 Other specified diseases of liver; D69.6 Thrombocytopenia, unspecified; C90.00 Multiple myeloma not having achieved remission; D51.1 Vitamin B12 deficiency anemia due to selective vitamin B12 malabsorption with proteinuria; D51.3 Other dietary vitamin B12 deficiency anemia; D63.1 Anemia in chronic kidney disease; D47.2 Monoclonal gammopathy; I67.89 Other cerebrovascular disease; I69.352 Hemiplegia and hemiparesis following cerebral infarction affecting left dominant side; I67.9 Cerebrovascular disease, unspecified

== ENCOUNTER 2023-10-24 06:30 | Outpatient (CLI) | payer OTHER ==
[2023-10-24 07:27] LABS: HEMATOCRIT 38.2 % (39.0-48.0); HEMOGLOBIN 13.1 g/dL (13-16.00); MEAN CELL VOLUME 93.6 fL (80.0-100.00); MEAN CORPUSCULAR HGB CONC 34.2 g/dl (32.0-36.0); PLATELET COUNT 205 K/uL (150-450); RED BLOOD COUNT 4.08 M/uL (4.00-6.00); RED CELL DISTRIBUTION WIDTH 16.9 % (11.5-14.5)
[2023-10-24 07:54] LABS: MANUAL PLATELET COUNT 478
[2023-10-24 08:01] LABS: ALBUMIN 3.8 gm/dL (3.4-5.0); BILIRUBIN TOTAL 1.07 mg/dL (0.3-1.2); CREATININE SERUM 1.37 mg/dL (0.70-1.30); GFR 51.08; GLOBULINA 3.1 G/DL (2.4-3.5); POTASSIUM 3.89 mEq/L (3.5-5.1); TOTAL PROTEIN 6.9 gm/dL (6.4-8.2)
== END 2023-10-24 06:31 | disposition home or self-care (01) ==
LOC: LAB 06:30
PROVIDERS: ATTEND Internal Medicine Hematology & Oncology
DX: C90.00 Multiple myeloma not having achieved remission (principal); D51.1 Vitamin B12 deficiency anemia due to selective vitamin B12 malabsorption with proteinuria; D51.3 Other dietary vitamin B12 deficiency anemia; I10 Essential (primary) hypertension; D63.1 Anemia in chronic kidney disease; N18.30 Chronic kidney disease, stage 3 unspecified; D47.2 Monoclonal gammopathy; I67.89 Other cerebrovascular disease; I69.352 Hemiplegia and hemiparesis following cerebral infarction affecting left dominant side; I67.9 Cerebrovascular disease, unspecified; D50.8 Other iron deficiency anemias; R74.02 Elevation of levels of lactic acid dehydrogenase [LDH]; K76.89 Other specified diseases of liver; D69.6 Thrombocytopenia, unspecified

== ENCOUNTER 2023-11-28 06:12 | Outpatient (CLI) | payer OTHER ==
[2023-11-28 07:33] LABS: URINE APPEARANCE Clear; URINE BILIRRUBIN Negative (NEGATIVE); URINE BLOOD Negative; URINE COLOR Yellow; URINE KETONE Negative (NEGATIVE); URINE LEUKOCYTE Negative; URINE NITRATE Negative; URINE PROTEIN Trace (NEGATIVE); URINE UROBILINOGEN 0.2 E.U./dl
[2023-11-28 07:35] LABS: HEMATOCRIT 38.3 % (39.0-48.0); HEMOGLOBIN 12.8 g/dL (13-16.00); MEAN CELL VOLUME 94.5 fL (80.0-100.00); MEAN CORPUSCULAR HEMOGLOBIN 31.6 pg (27.00-32.0); MEAN CORPUSCULAR HGB CONC 33.4 g/dl (32.0-36.0); PLATELET COUNT 160 K/uL (150-450); RED BLOOD COUNT 4.05 M/uL (4.00-6.00); RED CELL DISTRIBUTION WIDTH 16.6 % (11.5-14.5)
[2023-11-28 07:37] LABS: URINE BACTERIA 11.3 uL (0.0-1933); URINE EPITHELIAL CELLS 2.1 uL (0.0-38.8); URINE RBC 3.8 uL (0.0-20.8); URINE WBC 2.1 uL (0.0-23.2)
[2023-11-28 08:27] LABS: ALBUMIN 3.7 gm/dL (3.4-5.0); ALKALINE PHOSPHATASE 69 U/L (50-136); ALT/SGPT 36 U/L (12-78); ANION GAP 9 (10.0-20.0); AST/SGOT 14 U/L (15-37); BILIRUBIN TOTAL 1.16 mg/dL (0.3-1.2); BLOOD UREA NITROGEN 19 mg/dL (7-18); BUN CREA RATIO 12 (7.0-25.0); CALCIUM 8.9 mg/dL (8.5-10.1); CARBON DIOXIDE 30 mEq/L (21-32); CHLORIDE 109 mmol/L (98-107); CHOL HDL RATIO 2.6 (0-5.0); CHOLESTEROL 124 mg/dL (0-200); CREATININE SERUM 1.54 mg/dL (0.70-1.30); FREE TRIODOTIRONINE 2.39 pg/ml (2.18-3.98); GFR 44.63; GLOBULINA 2.9 G/DL (2.4-3.5); GLUCOSE FASTING 133 mg/dL (65-100); HDL 48 mg/dl (40-60); LDH 161 U/L (87-241); LDL 52 mg/dl (0-130); OSMOLALITY SERUM 291 MOSM/KG (275-295); POTASSIUM 4.03 mEq/L (3.5-5.1); SODIUM 144 mmol/L (136-145); T4 TOTAL 8.91 UG/DL (4.5-12.1); TOTAL PROTEIN 6.6 gm/dL (6.4-8.2); TRIGLYCERIDES 118 mg/dL (0-150); TSH 0.429 uIU/mL (0.358-3.74); VLDL 23 (0-39)
[2023-11-28 08:33] LABS: URINE GLUCOSE 100 MG/DL (NEGATIVE)
[2023-11-28 08:35] LABS: C-REACTIVE PROTEIN < 0.29 MG/DL (0.00-0.29)
== END 2023-11-28 06:22 | disposition home or self-care (01) ==
LOC: LAB 06:12
PROVIDERS: ATTEND Internal Medicine
DX: C90.00 Multiple myeloma not having achieved remission (principal); G46.3 Brain stem stroke syndrome; I10 Essential (primary) hypertension; E11.9 Type 2 diabetes mellitus without complications; E11.40 Type 2 diabetes mellitus with diabetic neuropathy, unspecified; E03.9 Hypothyroidism, unspecified; E55.9 Vitamin D deficiency, unspecified; E78.9 Disorder of lipoprotein metabolism, unspecified; Z12.5 Encounter for screening for malignant neoplasm of prostate; Z12.10 Encounter for screening for malignant neoplasm of intestinal tract, unspecified; R74.02 Elevation of levels of lactic acid dehydrogenase [LDH]; K76.89 Other specified diseases of liver; Z94.81 Bone marrow transplant status; D51.1 Vitamin B12 deficiency anemia due to selective vitamin B12 malabsorption with proteinuria; D51.3 Other dietary vitamin B12 deficiency anemia; D63.1 Anemia in chronic kidney disease; D47.2 Monoclonal gammopathy; I67.89 Other cerebrovascular disease; I69.352 Hemiplegia and hemiparesis following cerebral infarction affecting left dominant side; I67.9 Cerebrovascular disease, unspecified

== ENCOUNTER → 2024-01-04 06:04 | Outpatient (CLI) | payer OTHER ==
[2024-01-04 07:33] LABS: MEAN CELL VOLUME 95.2 fL (80.0-100.00); MEAN CORPUSCULAR HEMOGLOBIN 31.7 pg (27.00-32.0); MEAN CORPUSCULAR HGB CONC 33.3 g/dl (32.0-36.0); PLATELET COUNT 193 K/uL (150-450); RED BLOOD COUNT 4.09 M/uL (4.00-6.00); RED CELL DISTRIBUTION WIDTH 16.7 % (11.5-14.5)
[2024-01-04 08:18] LABS: ALBUMIN 3.8 gm/dL (3.4-5.0); BILIRUBIN TOTAL 1.18 mg/dL (0.3-1.2); CREATININE SERUM 1.4 mg/dL (0.70-1.30); GFR 49.82; POTASSIUM 4.17 mEq/L (3.5-5.1); TOTAL PROTEIN 6.8 gm/dL (6.4-8.2)
== END | disposition home or self-care (01) ==
LOC: LAB 06:04
PROVIDERS: ATTEND Internal Medicine Hematology & Oncology
DX: C90.00 Multiple myeloma not having achieved remission (principal); D50.8 Other iron deficiency anemias; I10 Essential (primary) hypertension; R74.02 Elevation of levels of lactic acid dehydrogenase [LDH]; K76.89 Other specified diseases of liver; D51.1 Vitamin B12 deficiency anemia due to selective vitamin B12 malabsorption with proteinuria; D51.3 Other dietary vitamin B12 deficiency anemia; D47.2 Monoclonal gammopathy; I67.89 Other cerebrovascular disease; I67.9 Cerebrovascular disease, unspecified

== ENCOUNTER 2024-01-12 08:59 | Emergency (ER) | payer OTHER ==
[~2024-01-12] VITALS: Ht 180.3 cm; Wt 86.2 kg
[2024-01-12] MEDS ORDERED: ONDANSETRON HCL 2 MG/ML VIAL IV ONE (10:00)
[2024-01-12] MEDS ORDERED: 0.9 % SODIUM CHLORIDE 1,000 ML IV ONE (10:00)
[2024-01-12] MEDS ORDERED: FAMOtidine 10 MG/ML (4ML VIAL) IV ONE (10:00)
[2024-01-12 10:22] LABS: MEAN CELL VOLUME 93.9 fL (80.0-100.00); MEAN CORPUSCULAR HEMOGLOBIN 32.1 pg (27.00-32.0); MEAN CORPUSCULAR HGB CONC 34.2 g/dl (32.0-36.0); PLATELET COUNT 165 K/uL (150-450); RED BLOOD COUNT 4.04 M/uL (4.00-6.00); RED CELL DISTRIBUTION WIDTH 16.6 % (11.5-14.5)
[2024-01-12 10:37] LABS: INR 0.97; PARTIAL THROMBOPLASTIN TIME 28.7 SECONDS (22.0-34.0); PROTHROMBIN TIME 10.6 SECONDS (9.0-11.5)
[2024-01-12 10:42] LABS: ABG PH 7.453 (7.35-7.45); ABG PO2 84.3 mmHg (80-100); ABG pCO2 33.1 mmHg (35-45); BASE EXCESS -0.5 mmol/l; BICARBONATE 22.6 mmol/l (23-25); SaO2 96.8 %; Tco2 23.6 mmol/l
[2024-01-12 11:11] LABS: PH,URINE 6.5 (5.0-8.0); URINE APPEARANCE Clear; URINE BILIRRUBIN Negative (NEGATIVE); URINE BLOOD Negative; URINE COLOR Yellow; URINE KETONE Negative (NEGATIVE); URINE LEUKOCYTE Negative; URINE NITRATE Negative; URINE PROTEIN Negative (NEGATIVE); URINE UROBILINOGEN 0.2 E.U./dl
[2024-01-12 11:15] LABS: URINE BACTERIA 7.5 uL (0.0-1933)
[2024-01-12 11:26] LABS: ALBUMIN 3.6 gm/dL (3.4-5.0); BILIRUBIN TOTAL 1.17 mg/dL (0.3-1.2); CALCIUM 8.9 mg/dL (8.5-10.1); CREATININE SERUM 1.15 mg/dL (0.70-1.30); GFR 62.51; GLOBULINA 3.1 G/DL (2.4-3.5); POTASSIUM 3.86 mEq/L (3.5-5.1); TOTAL PROTEIN 6.7 gm/dL (6.4-8.2)
[2024-01-12 11:30] LABS: URINE EPITHELIAL CELLS 0.7 uL (0.0-38.8); URINE GLUCOSE 500 MG/DL (NEGATIVE); URINE RBC 1.6 uL (0.0-20.8); URINE WBC 0.4 uL (0.0-23.2)
[2024-01-12 11:48] LABS: allen test SATISFACTORY; o2 21 %; puncture site RADIAL RIGHT
[2024-01-12] MEDS ORDERED: GUAIFENESIN/DEXTROMETHORPHAN 10ML BLIST.PACK PO ONE (20:15)
== END 2024-01-12 20:13 | disposition home or self-care (01) ==
LOC: ER 09:01
PROVIDERS: General Practice
DX: J40 Bronchitis, not specified as acute or chronic (principal); C90.00 Multiple myeloma not having achieved remission; R53.1 Weakness; Z20.822 Contact with and (suspected) exposure to COVID-19; I10 Essential (primary) hypertension; E11.9 Type 2 diabetes mellitus without complications
CPT/HCPCS: 36415; 70450; 71045; 82803; 93005; 96365; 96366; 99284; J2405; J3490; J7030

== ENCOUNTER 2024-03-15 06:04 | Outpatient (CLI) | payer OTHER ==
[2024-03-15 07:38] LABS: HEMATOCRIT 35.5 % (39.0-48.0); MEAN CELL VOLUME 95.4 fL (80.0-100.00); MEAN CORPUSCULAR HEMOGLOBIN 32.2 pg (27.00-32.0); MEAN CORPUSCULAR HGB CONC 33.7 g/dl (32.0-36.0); PLATELET COUNT 210 K/uL (150-450); RED BLOOD COUNT 3.72 M/uL (4.00-6.00); RED CELL DISTRIBUTION WIDTH 18.2 % (11.5-14.5)
[2024-03-15 08:03] LABS: ALBUMIN 3.4 gm/dL (3.4-5.0); BILIRUBIN TOTAL 0.73 mg/dL (0.3-1.2); CALCIUM 8.8 mg/dL (8.5-10.1); CREATININE SERUM 1.56 mg/dL (0.70-1.30); GFR 43.97; GLOBULINA 3.1 G/DL (2.4-3.5); POTASSIUM 3.52 mEq/L (3.5-5.1); TOTAL PROTEIN 6.5 gm/dL (6.4-8.2)
[2024-03-16 14:09] LABS: kappa lambda r 0.86 (0.26-1.65); kappa light 13.1 mg/L (3.3-19.4); lambda light 15.3 mg/L (5.7-26.3)
[2024-03-17 16:04] LABS: BETA-2-MICROGLOBULINA 2.3 mg/L (0.6-2.4)
[2024-03-19 22:05] LABS: albu 26.9 % (.); alp 6.3 % (.); beta 23.6 % (.); gam 22.2 % (.); prot 24.6 mg/dL (Not Estab.)
[2024-03-21 16:04] LABS: IMM A 511 mg/dL (61-437); IMM G 526 mg/dL (603-1613); IMM M 15 mg/dL (15-143); a:g ratio 1.3 (0.7-1.7); alpha 1 g 0.2 g/dL (0.0-0.4); alpha 2 0.7 g/dL (0.4-1.0); beta g 1.4 g/dL (0.7-1.3); gamma g 0.4 g/dL (0.4-1.8); globulin t 2.7 g/dL (2.2-3.9); prot total 6.1 g/dL (6.0-8.5)
== END 2024-03-15 06:05 | disposition home or self-care (01) ==
LOC: LAB 06:04
PROVIDERS: ATTEND Internal Medicine Hematology & Oncology
DX: C90.00 Multiple myeloma not having achieved remission (principal); Z94.81 Bone marrow transplant status; D51.1 Vitamin B12 deficiency anemia due to selective vitamin B12 malabsorption with proteinuria; D51.3 Other dietary vitamin B12 deficiency anemia; I10 Essential (primary) hypertension; D63.1 Anemia in chronic kidney disease; N18.30 Chronic kidney disease, stage 3 unspecified; D47.2 Monoclonal gammopathy; I67.89 Other cerebrovascular disease; I69.352 Hemiplegia and hemiparesis following cerebral infarction affecting left dominant side; I67.9 Cerebrovascular disease, unspecified; D50.8 Other iron deficiency anemias; R74.02 Elevation of levels of lactic acid dehydrogenase [LDH]; K76.89 Other specified diseases of liver; R71.8 Other abnormality of red blood cells

== ENCOUNTER 2024-06-18 06:04 | Outpatient (CLI) | payer OTHER ==
[2024-06-18 06:54] LABS: HEMATOCRIT 33.9 % (39.0-48.0); HEMOGLOBIN 11.5 g/dL (13-16.00); MEAN CELL VOLUME 94.2 fL (80.0-100.00); MEAN CORPUSCULAR HEMOGLOBIN 32.1 pg (27.00-32.0); MEAN CORPUSCULAR HGB CONC 34.1 g/dl (32.0-36.0); PLATELET COUNT 200 K/uL (150-450); RED BLOOD COUNT 3.59 M/uL (4.00-6.00); RED CELL DISTRIBUTION WIDTH 17.4 % (11.5-14.5)
[2024-06-18 07:27] LABS: ALBUMIN 3.3 gm/dL (3.4-5.0); BILIRUBIN TOTAL 0.95 mg/dL (0.3-1.2); CALCIUM 8.7 mg/dL (8.5-10.1); CREATININE SERUM 1.16 mg/dL (0.70-1.30); GFR 61.89; GLOBULINA 3.5 G/DL (2.4-3.5); POTASSIUM 3.39 mEq/L (3.5-5.1); TOTAL PROTEIN 6.8 gm/dL (6.4-8.2)
[2024-06-19 15:05] LABS: kappa lambda r 0.21 (0.26-1.65); kappa light 7.2 mg/L (3.3-19.4); lambda light 34.9 mg/L (5.7-26.3)
[2024-06-20 07:04] LABS: BETA-2-MICROGLOBULINA 2.1 mg/L (0.6-2.4)
[2024-06-20 13:09] LABS: IMM A 1271 mg/dL (61-437); IMM G 437 mg/dL (603-1613); IMM M 17 mg/dL (15-143); a:g ratio 1.1 (0.7-1.7); alpha 1 g 0.3 g/dL (0.0-0.4); alpha 2 0.7 g/dL (0.4-1.0); gamma g 0.4 g/dL (0.4-1.8); globulin t 3.3 g/dL (2.2-3.9); m spike 0.9 g/dL (Not Observed); prot total 6.8 g/dL (6.0-8.5)
[2024-06-20 19:04] LABS: alp 0 % (.); alph 2 0 % (.); beta 0 % (.); gam 0 % (.); m spi 0 % (Not Observed); prot 7.4 mg/dL (Not Estab.)
== END 2024-06-18 06:11 | disposition home or self-care (01) ==
LOC: LAB 06:04
PROVIDERS: ATTEND Internal Medicine Hematology & Oncology
DX: C90.00 Multiple myeloma not having achieved remission (principal); Z94.81 Bone marrow transplant status; I10 Essential (primary) hypertension; N18.30 Chronic kidney disease, stage 3 unspecified; D47.2 Monoclonal gammopathy; I67.89 Other cerebrovascular disease; I69.352 Hemiplegia and hemiparesis following cerebral infarction affecting left dominant side; I67.9 Cerebrovascular disease, unspecified; D50.8 Other iron deficiency anemias; R74.02 Elevation of levels of lactic acid dehydrogenase [LDH]; K76.89 Other specified diseases of liver

== ENCOUNTER 2024-06-30 14:32 | Emergency (ER) | payer OTHER ==
[~2024-06-30] VITALS: Ht 180.3 cm; Wt 86.2 kg
[2024-06-30] MEDS ORDERED: DEXAMETHASONE SODIUM PHOSPHATE 4 MG/ML VIAL IM STA (15:04)
[2024-06-30] MEDS ORDERED: KETOROLAC TROMETHAMINE 30 MG VIAL IM STA (15:04)
[2024-06-30] MEDS ORDERED: DEXAMETHASONE SODIUM PHOSPHATE 4 MG/ML VIAL ONE (15:14)
[2024-06-30] MEDS ORDERED: KETOROLAC TROMETHAMINE 30 MG VIAL ONE (15:14)
[2024-06-30 15:54] LABS: MEAN CELL VOLUME 95.6 fL (80.0-100.00); MEAN CORPUSCULAR HEMOGLOBIN 31.9 pg (27.00-32.0); MEAN CORPUSCULAR HGB CONC 33.4 g/dl (32.0-36.0); PLATELET COUNT 276 K/uL (150-450); RED BLOOD COUNT 3.77 M/uL (4.00-6.00); RED CELL DISTRIBUTION WIDTH 16.6 % (11.5-14.5)
[2024-06-30 16:14] LABS: ERYTHROCYTE SEDIMENTATION RATE 121 mm/hr
[2024-06-30 16:43] LABS: ALBUMIN 3.5 gm/dL (3.4-5.0); BILIRUBIN TOTAL 0.84 mg/dL (0.3-1.2); CALCIUM 9.1 mg/dL (8.5-10.1); CREATININE SERUM 1.26 mg/dL (0.70-1.30); GFR 56.26; POTASSIUM 3.85 mEq/L (3.5-5.1); TOTAL PROTEIN 7.5 gm/dL (6.4-8.2)
[2024-06-30 16:47] LABS: C-REACTIVE PROTEIN 1.02 MG/DL (0.00-0.29)
== END 2024-06-30 18:09 | disposition home or self-care (01) ==
LOC: ER 14:34
DX: C79.51 Secondary malignant neoplasm of bone (principal); M54.6 Pain in thoracic spine; M79.10 Myalgia, unspecified site; I10 Essential (primary) hypertension; E11.9 Type 2 diabetes mellitus without complications
CPT/HCPCS: 36415; 71260; 96372; 99284; J1100; J1885; Q9965

== ENCOUNTER 2024-07-15 06:12 | Outpatient (CLI) | payer OTHER ==
[2024-07-15 08:23] LABS: HEMATOCRIT 36.6 % (39.0-48.0); HEMOGLOBIN 12.2 g/dL (13-16.00); MEAN CORPUSCULAR HEMOGLOBIN 31.9 pg (27.00-32.0); MEAN CORPUSCULAR HGB CONC 33.2 g/dl (32.0-36.0); PLATELET COUNT 226 K/uL (150-450); RED BLOOD COUNT 3.81 M/uL (4.00-6.00); RED CELL DISTRIBUTION WIDTH 17.2 % (11.5-14.5)
[2024-07-15 09:09] LABS: ALBUMIN 3.4 gm/dL (3.4-5.0); BILIRUBIN TOTAL 0.69 mg/dL (0.3-1.2); CALCIUM 9.4 mg/dL (8.5-10.1); CREATININE SERUM 1.43 mg/dL (0.70-1.30); GFR 48.61; GLOBULINA 4.2 G/DL (2.4-3.5); POTASSIUM 5.08 mEq/L (3.5-5.1); TOTAL PROTEIN 7.6 gm/dL (6.4-8.2)
== END 2024-07-15 06:16 | disposition home or self-care (01) ==
LOC: LAB 06:12
PROVIDERS: ATTEND Internal Medicine Hematology & Oncology
DX: C90.00 Multiple myeloma not having achieved remission (principal); Z94.81 Bone marrow transplant status; D51.1 Vitamin B12 deficiency anemia due to selective vitamin B12 malabsorption with proteinuria; D51.3 Other dietary vitamin B12 deficiency anemia; I10 Essential (primary) hypertension; D63.1 Anemia in chronic kidney disease; N18.30 Chronic kidney disease, stage 3 unspecified; D47.2 Monoclonal gammopathy; I67.89 Other cerebrovascular disease; I69.352 Hemiplegia and hemiparesis following cerebral infarction affecting left dominant side; I67.9 Cerebrovascular disease, unspecified; D50.8 Other iron deficiency anemias; R74.02 Elevation of levels of lactic acid dehydrogenase [LDH]; K76.89 Other specified diseases of liver

== ENCOUNTER 2024-07-15 07:24 | Outpatient (CLI) | payer OTHER | END 2024-07-15 07:29 | disposition home or self-care (01) | LOC: RAD 07:24 | PROVIDERS: ATTEND Internal Medicine Hematology & Oncology | DX: C90.00 Multiple myeloma not having achieved remission (principal); Z94.81 Bone marrow transplant status; D51.1 Vitamin B12 deficiency anemia due to selective vitamin B12 malabsorption with proteinuria; D51.3 Other dietary vitamin B12 deficiency anemia; I10 Essential (primary) hypertension; D63.1 Anemia in chronic kidney disease; D47.2 Monoclonal gammopathy; I67.89 Other cerebrovascular disease; I69.352 Hemiplegia and hemiparesis following cerebral infarction affecting left dominant side; I67.9 Cerebrovascular disease, unspecified ==

== ENCOUNTER 2024-07-17 07:01 | Outpatient (CLI) | payer OTHER | END 2024-07-17 07:14 | disposition home or self-care (01) | LOC: MRI 07:01 | PROVIDERS: ATTEND Internal Medicine Hematology & Oncology | DX: C90.00 Multiple myeloma not having achieved remission (principal); Z94.81 Bone marrow transplant status; D51.1 Vitamin B12 deficiency anemia due to selective vitamin B12 malabsorption with proteinuria; D51.3 Other dietary vitamin B12 deficiency anemia; I10 Essential (primary) hypertension; D63.1 Anemia in chronic kidney disease; N18.30 Chronic kidney disease, stage 3 unspecified; D47.2 Monoclonal gammopathy; I67.89 Other cerebrovascular disease; I69.352 Hemiplegia and hemiparesis following cerebral infarction affecting left dominant side; I67.9 Cerebrovascular disease, unspecified | CPT/HCPCS: 72141; 72146; 72148 ==

== ENCOUNTER 2024-08-08 06:12 | Emergency (ER) | payer OTHER ==
[~2024-08-08] VITALS: Ht 180.3 cm; Wt 83.9 kg
[2024-08-08] MEDS ORDERED: MULTIVIT INFUSN,ADULT 4,VIT K 10 ML VIAL IV STA (07:50)
[2024-08-08] MEDS ORDERED: ONDANSETRON HCL 2 MG/ML VIAL IV STA (07:51)
[2024-08-08] MEDS ORDERED: FAMOTIDINE/PF 20 MG/2 ML VIAL IV PUSH STA (07:51)
[2024-08-08] MEDS ORDERED: 0.9 % SODIUM CHLORIDE 1,000 ML IV ONE (08:00)
[2024-08-08] MEDS ORDERED: ONDANSETRON HCL 2 MG/ML VIAL ONE (08:17)
[2024-08-08] MEDS ORDERED: FAMOTIDINE/PF 20 MG/2 ML VIAL ONE (08:18)
[2024-08-08 08:32] LABS: HEMATOCRIT 38.7 % (39.0-48.0); HEMOGLOBIN 13.1 g/dL (13-16.00); MEAN CELL VOLUME 95.4 fL (80.0-100.00); MEAN CORPUSCULAR HEMOGLOBIN 32.4 pg (27.00-32.0); MEAN CORPUSCULAR HGB CONC 33.9 g/dl (32.0-36.0); PLATELET COUNT 158 K/uL (150-450); RED BLOOD COUNT 4.05 M/uL (4.00-6.00); RED CELL DISTRIBUTION WIDTH 17.6 % (11.5-14.5)
[2024-08-08 09:03] LABS: ALBUMIN 3.3 gm/dL (3.4-5.0); BILIRUBIN TOTAL 1.23 mg/dL (0.3-1.2); CALCIUM 9.2 mg/dL (8.5-10.1); CREATININE SERUM 1.47 mg/dL (0.70-1.30); GFR 46.96; GLOBULINA 5.1 G/DL (2.4-3.5); POTASSIUM 4.23 mEq/L (3.5-5.1); TOTAL PROTEIN 8.4 gm/dL (6.4-8.2)
[2024-08-08 09:59] LABS: URINE APPEARANCE Clear; URINE BILIRRUBIN Negative (NEGATIVE); URINE BLOOD Negative; URINE COLOR Dark Yellow; URINE KETONE 15 (NEGATIVE); URINE LEUKOCYTE Negative; URINE NITRATE Negative; URINE PROTEIN 30 (NEGATIVE)
[2024-08-08 10:02] LABS: URINE BACTERIA 141.9 uL (0.0-1933); URINE CAST 1.62 uL (0.0-1.40); URINE RBC 19.4 uL (0.0-20.8); URINE WBC 3.9 uL (0.0-23.2)
[2024-08-08 10:14] LABS: URINE GLUCOSE 100 MG/DL (NEGATIVE)
== END 2024-08-08 16:48 | disposition home or self-care (01) ==
LOC: ER 06:13
PROVIDERS: General Practice
DX: R11.10 Vomiting, unspecified (principal); E86.0 Dehydration; I10 Essential (primary) hypertension; Z85.89 Personal history of malignant neoplasm of other organs and systems
CPT/HCPCS: 36415; 96365; 96366; 99282; J2405; J3490; J7030

== ENCOUNTER 2024-08-11 09:17 | Inpatient (IN) | payer OTHER ==
[~2024-08-11] VITALS: Ht 180.3 cm; Wt 81.6 kg
--- NOTE | 2024-08-11 09:46 | NUR ---
SE RECIBE PACIENTE ALERTA Y ORIENTADO X3 EL CUAL REFIERE VENIR POR DOLOR ABDOMINAL VOMITOS Y PORQUE COOPER ESTADO INAPETENTE. EL MISMO REFIERE QUE [place] INTERNISTA ES DR. CHANG SONG
[2024-08-11] MEDS ORDERED: 0.9 % SODIUM CHLORIDE 1,000 ML IV SCH (09:51)
[2024-08-11] MEDS ORDERED: ONDANSETRON HCL 2 MG/ML VIAL IV STA (09:51)
[2024-08-11] MEDS ORDERED: FAMOTIDINE/PF 20 MG in 0.9 % SODIUM CHLORIDE 8 ML IV PUSH STA (09:58)
[2024-08-11] MEDS ORDERED: SUCRALFATE 1 G TABLET PO ONE (10:00)
[2024-08-11] MEDS ORDERED: FAMOTIDINE/PF 20 MG/2 ML VIAL ONE (10:00)
[2024-08-11] MEDS ORDERED: ONDANSETRON HCL 2 MG/ML VIAL ONE (10:00)
--- NOTE | 2024-08-11 10:24 | NUR ---
SE ORIENTA PTE SOBRE TX A SEGUIR, EL MISMO REFIERE ENTENDER. SE WOLFGANG MUESTRA DE LAB, SE CANALIZA Y SE ADMINISTRA MED BRYAN ORDEN MEDICA
[2024-08-11 10:58] LABS: HEMATOCRIT 33.9 % (39.0-48.0); HEMOGLOBIN 11.7 g/dL (13-16.00); MEAN CELL VOLUME 93.2 fL (80.0-100.00); MEAN CORPUSCULAR HEMOGLOBIN 32.1 pg (27.00-32.0); MEAN CORPUSCULAR HGB CONC 34.4 g/dl (32.0-36.0); RED BLOOD COUNT 3.64 M/uL (4.00-6.00); RED CELL DISTRIBUTION WIDTH 17.7 % (11.5-14.5)
[2024-08-11 10:59] LABS: PLATELET COUNT 192 K/uL (150-450)
[2024-08-11 11:19] LABS: BILIRUBIN TOTAL 0.94 mg/dL (0.3-1.2); CALCIUM 8.9 mg/dL (8.5-10.1); COVID-19 AG NEGATIVE (NEGATIVE); CREATININE SERUM 1.03 mg/dL (0.70-1.30); GFR 70.79; GLOBULINA 4.6 G/DL (2.4-3.5); POTASSIUM 3.4 mEq/L (3.5-5.1); TOTAL PROTEIN 7.6 gm/dL (6.4-8.2)
[2024-08-11 15:42] LABS: PH,URINE 6.5 (5.0-8.0); URINE APPEARANCE Clear; URINE BILIRRUBIN Negative (NEGATIVE); URINE BLOOD Negative; URINE COLOR Yellow; URINE LEUKOCYTE Negative; URINE NITRATE Negative; URINE PROTEIN 30 (NEGATIVE)
[2024-08-11 15:46] LABS: URINE BACTERIA 50.1 uL (0.0-1933); URINE EPITHELIAL CELLS 6.4 uL (0.0-38.8); URINE RBC 13.5 uL (0.0-20.8); URINE WBC 5.3 uL (0.0-23.2)
[2024-08-11 15:55] LABS: URINE CAST 0.14 uL (0.0-1.40); URINE GLUCOSE 250 MG/DL (NEGATIVE); URINE KETONE 40 (NEGATIVE)
[2024-08-11] MEDS ORDERED: KETOROLAC TROMETHAMINE 30 MG VIAL IV ONE (18:15)
[2024-08-11] MEDS ORDERED: KETOROLAC TROMETHAMINE 30 MG VIAL ONE (18:15)
[2024-08-12] MEDS ORDERED: KETOROLAC TROMETHAMINE 30 MG VIAL IV STA (07:16)
[2024-08-12] MEDS ORDERED: KETOROLAC TROMETHAMINE 30 MG VIAL ONE (07:33)
[2024-08-12 09:03] LABS: CREATININE SERUM 0.99 mg/dL (0.70-1.30); GFR 74.1; POTASSIUM 3.67 mEq/L (3.5-5.1)
[2024-08-12] MEDS ORDERED: SUCRALFATE 1 G TABLET PO SCH (09:11)
[2024-08-12] MEDS ORDERED: PANTOPRAZOLE SODIUM 40 MG/VIAL VIAL IV PUSH ONE (09:15)
[2024-08-12] MEDS ORDERED: FAMOTIDINE/PF 20 MG/2 ML VIAL ONE (11:50)
[2024-08-12] MEDS ORDERED: FAMOTIDINE/PF 20 MG/2 ML VIAL IV SCH (12:00)
[2024-08-12] MEDS ORDERED: PANTOPRAZOLE SODIUM 40 MG TABLET.DR PO SCH (16:12)
--- NOTE | 2024-08-12 16:32 | NUR ---
PTE ALERTA Y ORIENTADO X 3 ESFERAS EN COMPANIA DE FAMILIAR,EN CAMA CON BARANDAS ELEVADAS,AREA DE VENOPUNCION PATENTE Y GUANACO DE EDEMA CON FLUIDOS DE MANTENIMIENTO.PENDIENTE A EVALUACION DR Manuel SONG.
[2024-08-12] MEDS ORDERED: 0.9 % SODIUM CHLORIDE 1,000 ML IV SCH ×2 (17:00→17:45)
[2024-08-12] MEDS ORDERED: INSULIN LISPRO 1,000 UNIT/10 ML UNITS SUBCUTANEO PRN (18:00)
[2024-08-12] MEDS ORDERED: ACETAMINOPHEN 500 MG GEL..CAP PO PRN (18:00)
[2024-08-12] MEDS ORDERED: DEXTROSE 50 % IN WATER 0.5 G/ML VIAL IV PRN (18:00)
[2024-08-12] MEDS ORDERED: SUCRALFATE 1 G TABLET ONE (18:56)
[2024-08-12 19:19] LABS: ABG PH 7.446 (7.35-7.45); ABG PO2 80.9 mmHg (80-100); ABG pCO2 34.6 mmHg (35-45); BASE EXCESS -0.1 mmol/l; BICARBONATE 23.3 mmol/l (23-25); SaO2 96.4 %; Tco2 24.4 mmol/l
[2024-08-12 19:26] VITALS: BP 169/80; O2SAT 96
[2024-08-12 19:34] VITALS: BP 169/80
[2024-08-12 19:44] LABS: allen test SATISFACTORY; mode ROOM AIR; o2 21 %; puncture site RADIAL RIGHT
[2024-08-12 19:50] LABS: INR 1.03; PARTIAL THROMBOPLASTIN TIME 30.6 SECONDS (22.0-34.0); PROTHROMBIN TIME 11.2 SECONDS (9.0-11.5)
[2024-08-12 19:54] LABS: MAGNESIUM 1.9 mg/dL (1.8-2.4); PHOSPHOROUS 2.5 mg/dL (2.5-4.9)
[2024-08-12 20:04] LABS: C-REACTIVE PROTEIN 12.2 MG/DL (0.00-0.29)
[2024-08-12 22:00] VITALS: BP 149/87
[2024-08-13 01:35] VITALS: BP 154/80
[2024-08-13 02:26] VITALS: BP 168/84; O2SAT 97
[2024-08-13] MEDS ORDERED: ONDANSETRON HCL 2 MG/ML VIAL IV PRN ×2 (08:00→09:41)
[2024-08-13] MEDS ORDERED: ENALAPRILAT DIHYDRATE 1.25 MG/ML VIAL IV PRN (08:00)
[2024-08-13] MEDS ORDERED: ENOXAPARIN SODIUM 40 MG/0.4 ML SYRINGE SUBCUTANEO SCH (09:00)
[2024-08-13] MEDS ORDERED: NIFEDIPINE 30 MG TAB.SA.OSM PO SCH (09:00)
[2024-08-13] MEDS ORDERED: ROSUVASTATIN CALCIUM 10 MG TABLET PO SCH (09:00)
[2024-08-13] MEDS ORDERED: LOSARTAN POTASSIUM 100 MG TABLET PO SCH (09:00)
[2024-08-13] MEDS ORDERED: PANTOPRAZOLE SODIUM 40 MG/VIAL VIAL IV SCH (09:00)
[2024-08-13 10:03] VITALS: BP 175/84; O2SAT 100
[2024-08-13 15:09] LABS: CALCIUM 8.7 mg/dL (8.5-10.1); CHOL HDL RATIO 3.7 (0-5.0); CREATININE SERUM 0.87 mg/dL (0.70-1.30); GFR 86.01; POTASSIUM 3.59 mEq/L (3.5-5.1)
[2024-08-13 16:48] VITALS: BP 171/75; O2SAT 97
[2024-08-13] MEDS ORDERED: AMINO ACIDS 4.25 %/DEXTROSE 5% 2,000 ML PERIFERAL SCH (17:00)
[2024-08-14 00:18] VITALS: BP 132/78
[2024-08-14 08:00] VITALS: BP 142/90; O2SAT 97
[2024-08-14 17:55] VITALS: BP 149/74; O2SAT 98
[2024-08-15 02:04] VITALS: BP 134/74; O2SAT 93
[2024-08-15] MEDS ORDERED: DIPHENHYDRAMINE HCL 50 MG/ML VIAL 1ML IV STA (13:07)
[2024-08-15] MEDS ORDERED: FentaNYL CITRATE/PF 50MCG/ML 2ML VIAL IJ STA (13:08)
[2024-08-15] MEDS ORDERED: MIDAZOLAM HCL 2 MG/2 ML VIAL IV STA (13:08)
[2024-08-15 18:17] VITALS: BP 144/76; O2SAT 99
[2024-08-16 02:22] VITALS: BP 151/69; O2SAT 96
[2024-08-16 08:25] VITALS: BP 164/92
[2024-08-16] MEDS ORDERED: PANTOPRAZOLE SODIUM 40 MG TABLET.DR PO SCH (09:00)
[2024-08-16] MEDS ORDERED: MULTIVIT INFUSN,ADULT 4,VIT K 10 ML VIAL IV SCH (12:00)
[2024-08-16] MEDS ORDERED: LACTOBACILLUS ACIDOPHILUS 1 CAP CAP PO SCH (13:00)
[2024-08-16 16:48] VITALS: BP 149/70; O2SAT 98
[2024-08-17 00:45] VITALS: BP 129/71; O2SAT 96
[2024-08-17 08:07] VITALS: BP 148/90
[2024-08-17 09:28] LABS: ALBUMIN 2.5 gm/dL (3.4-5.0); BILIRUBIN TOTAL 0.55 mg/dL (0.3-1.2); CALCIUM 7.6 mg/dL (8.5-10.1); CREATININE SERUM 0.99 mg/dL (0.70-1.30); GFR 74.1; GLOBULINA 3.8 G/DL (2.4-3.5); TOTAL PROTEIN 6.3 gm/dL (6.4-8.2)
[2024-08-17 09:32] LABS: BASO % 0.8 % (0.1-1.2); EOS # 0.04 (0.04-0.54); EOS % 1.7 % (0.7-7.0); HEMOGLOBIN 10.3 g/dL (13.7-17.5); LYMPH # 0.44 (1.18-3.74); LYMPH % 18.3 % (19.3-53.1); MEAN CORPUSCULAR HEMOGLOBIN 30.5 pg (25.6-32.2); MONO # 0.25 (0.24-0.82); MONO % 10.4 % (4.7-12.5); NEUT # 1.63 (1.56-6.13); PLATELET COUNT 210 K/uL (163-369); RED BLOOD COUNT 3.38 M/uL (4.63-6.08); RED CELL DISTRIBUTION WIDTH 15.8 % (11.6-14.4)
[2024-08-17 09:48] LABS: POTASSIUM 2.89 mEq/L (3.5-5.1)
[2024-08-17] MEDS ORDERED: POTASSIUM CHLORIDE IN WATER 40 MEQ/100 ML PIGGYBAG IV SCH (13:00)
[2024-08-17 18:36] VITALS: BP 135/84; O2SAT 96
[2024-08-18 01:05] VITALS: BP 138/89; O2SAT 98
[2024-08-18 08:21] VITALS: BP 143/76
[2024-08-18 14:56] LABS: CALCIUM 8.3 mg/dL (8.5-10.1); CREATININE SERUM 1.12 mg/dL (0.70-1.30); GFR 64.26; MAGNESIUM 1.8 mg/dL (1.8-2.4); POTASSIUM 3.98 mEq/L (3.5-5.1)
[2024-08-18] MEDS ORDERED: PROTONIX40 MG PO (15:02)
== END 2024-08-18 15:35 | disposition home or self-care (01) | DRG 392 ==
LOC: ER 09:17 → MEDJ 08-12 18:12
PROVIDERS: Emergency Medicine; General Practice; Internal Medicine Hematology & Oncology; ADMIT Internal Medicine; ATTEND Internal Medicine
PROC: BW21ZZZ Computerized Tomography (CT Scan) of Abdomen and Pelvis (ICD-10-PCS; 2024-08-13)
PROC: 0DB58ZX Excision of Esophagus, Via Natural or Artificial Opening Endoscopic, Diagnostic (ICD-10-PCS; principal; 2024-08-15)
PROC: 0DB78ZX Excision of Stomach, Pylorus, Via Natural or Artificial Opening Endoscopic, Diagnostic (ICD-10-PCS; 2024-08-15)
DX: K52.9 Noninfective gastroenteritis and colitis, unspecified (principal); C90.00 Multiple myeloma not having achieved remission; E86.0 Dehydration; R13.19 Other dysphagia; K25.9 Gastric ulcer, unspecified as acute or chronic, without hemorrhage or perforation; K20.80 Other esophagitis without bleeding; I10 Essential (primary) hypertension; E78.5 Hyperlipidemia, unspecified

== ENCOUNTER 2024-09-26 06:07 | Outpatient (CLI) | payer OTHER ==
[~2024-09-26 06:07] MED LIST changes: +PROTONIX40 MG PO
[2024-09-26 06:49] LABS: EOS # 0.08 (0.04-0.54); HEMATOCRIT 34.1 % (40.1-51.0); HEMOGLOBIN 11.1 g/dL (13.7-17.5); LYMPH # 1.81 (1.18-3.74); LYMPH % 45.6 % (19.3-53.1); MEAN CORPUSCULAR HEMOGLOBIN 32.1 pg (25.6-32.2); NEUT # 1.43 (1.56-6.13); PLATELET COUNT 219 K/uL (163-369); RED BLOOD COUNT 3.46 M/uL (4.63-6.08); RED CELL DISTRIBUTION WIDTH 18.7 % (11.6-14.4)
[2024-09-26 06:57] LABS: MONO % 15.1 % (4.7-12.5)
[2024-09-26 07:17] LABS: ALBUMIN 3.3 gm/dL (3.4-5.0); BILIRUBIN TOTAL 0.63 mg/dL (0.3-1.2); CALCIUM 9.5 mg/dL (8.5-10.1); CREATININE SERUM 1.57 mg/dL (0.70-1.30); GFR 43.52; GLOBULINA 5.3 G/DL (2.4-3.5); POTASSIUM 3.99 mEq/L (3.5-5.1); TOTAL PROTEIN 8.6 gm/dL (6.4-8.2)
== END 2024-09-26 06:12 | disposition home or self-care (01) ==
LOC: LAB 06:07
PROVIDERS: ATTEND Internal Medicine Hematology & Oncology
DX: D50.8 Other iron deficiency anemias (principal); I10 Essential (primary) hypertension; R74.02 Elevation of levels of lactic acid dehydrogenase [LDH]; K76.89 Other specified diseases of liver; C90.00 Multiple myeloma not having achieved remission; C79.52 Secondary malignant neoplasm of bone marrow; Z94.81 Bone marrow transplant status; D51.1 Vitamin B12 deficiency anemia due to selective vitamin B12 malabsorption with proteinuria; D51.3 Other dietary vitamin B12 deficiency anemia; D63.1 Anemia in chronic kidney disease; N18.30 Chronic kidney disease, stage 3 unspecified; D47.2 Monoclonal gammopathy; I67.89 Other cerebrovascular disease; I69.352 Hemiplegia and hemiparesis following cerebral infarction affecting left dominant side; I67.9 Cerebrovascular disease, unspecified

== ENCOUNTER 2024-10-21 06:18 | Outpatient (CLI) | payer OTHER ==
[2024-10-21 08:03] LABS: BASO % 0.2 % (0.1-1.2); EOS # 0.09 (0.04-0.54); EOS % 1.8 % (0.7-7.0); LYMPH # 0.66 (1.18-3.74); LYMPH % 13.0 % (19.3-53.1); MEAN PLATELET VOLUME 11.60 fl (9.4-12.4); MONO # 0.66 (0.24-0.82); MONO % 13.0 % (4.7-12.5); NEUT # 3.61 (1.56-6.13); NEUT % 71.4 % (34.0-71.1); RED CELL DISTRIBUTION WIDTH 17.8 % (11.6-14.4)
[2024-10-21 09:02] LABS: % SATURACION 22.7 % (20-50); ALT/SGPT 23.0 U/L (12-78); AST/SGOT 9.0 U/L (15-37); BILIRUBIN TOTAL 0.56 mg/dL (0.3-1.2); BUN CREA RATIO 21.0 (7.0-25.0); CREATININE SERUM 1.18 mg/dL (0.70-1.30); FE 54.0 ug/dl (65-175); GFR 60.51; GLOBULINA 3.9 G/DL (2.4-3.5); GLUCOSE FASTING 125.0 mg/dL (65-100); LDH 130.0 U/L (87-241); OSMOLALITY SERUM 289.0 MOSM/KG (275-295)
[2024-10-21 10:31] LABS: FOLIC ACID 12.42 ng/ml (4.78-20)
[2024-10-21 12:06] LABS: MYCOPLASMA PNEUMONIAE IGM NON REACTIVE (NO REACTIVE)
[2024-10-21 12:06] LABS: COVID-19 AG NEGATIVE (NEGATIVE)
== END 2024-10-21 06:20 | disposition home or self-care (01) ==
LOC: LAB 06:18
PROVIDERS: ATTEND Internal Medicine Hematology & Oncology
DX: C90.00 Multiple myeloma not having achieved remission (principal); Z94.81 Bone marrow transplant status; D51.1 Vitamin B12 deficiency anemia due to selective vitamin B12 malabsorption with proteinuria; D51.3 Other dietary vitamin B12 deficiency anemia; I10 Essential (primary) hypertension; D63.1 Anemia in chronic kidney disease; N18.30 Chronic kidney disease, stage 3 unspecified; D47.2 Monoclonal gammopathy; I67.89 Other cerebrovascular disease; I69.352 Hemiplegia and hemiparesis following cerebral infarction affecting left dominant side; I67.9 Cerebrovascular disease, unspecified; D50.8 Other iron deficiency anemias; R74.02 Elevation of levels of lactic acid dehydrogenase [LDH]; K76.89 Other specified diseases of liver; J11.1 Influenza due to unidentified influenza virus with other respiratory manifestations; U07.1 COVID-19; R06.9 Unspecified abnormalities of breathing

== ENCOUNTER 2024-10-31 06:18 | Outpatient (CLI) | payer OTHER ==
[2024-10-31 07:14] LABS: BASO % 0.5 % (0.1-1.2); EOS # 0.10 (0.04-0.54); EOS % 2.6 % (0.7-7.0); LYMPH # 0.86 (1.18-3.74); LYMPH % 22.2 % (19.3-53.1); MEAN PLATELET VOLUME 9.60 fl (9.4-12.4); MONO # 0.40 (0.24-0.82); MONO % 10.3 % (4.7-12.5); NEUT # 2.47 (1.56-6.13); NEUT % 63.6 % (34.0-71.1); RED CELL DISTRIBUTION WIDTH 17.2 % (11.6-14.4)
== END 2024-10-31 06:23 | disposition home or self-care (01) ==
LOC: LAB 06:18
PROVIDERS: ATTEND Internal Medicine Hematology & Oncology
DX: D50.8 Other iron deficiency anemias (principal)

== ENCOUNTER 2024-11-28 06:07 | Outpatient (CLI) | payer OTHER ==
[2024-11-28 06:24] LABS: BASO % 0.7 % (0.1-1.2); EOS # 0.06 (0.04-0.54); EOS % 1.5 % (0.7-7.0); LYMPH # 0.81 (1.18-3.74); LYMPH % 19.7 % (19.3-53.1); MEAN PLATELET VOLUME 10.00 fl (9.4-12.4); MONO # 0.73 (0.24-0.82); NEUT # 2.43 (1.56-6.13); NEUT % 58.9 % (34.0-71.1); RED CELL DISTRIBUTION WIDTH 16.5 % (11.6-14.4)
[2024-11-28 06:27] LABS: MONO % 17.7 % (4.7-12.5)
[2024-11-28 07:06] LABS: ALT/SGPT 55.0 U/L (12-78); AST/SGOT 29.0 U/L (15-37); BILIRUBIN TOTAL 0.94 mg/dL (0.3-1.2); BUN CREA RATIO 18.0 (7.0-25.0); CREATININE SERUM 1.48 mg/dL (0.70-1.30); GFR 46.59; GLOBULINA 3.6 G/DL (2.4-3.5); GLUCOSE FASTING 132.0 mg/dL (65-100); LDH 175.0 U/L (87-241); OSMOLALITY SERUM 293.0 MOSM/KG (275-295)
== END 2024-11-28 06:08 | disposition home or self-care (01) ==
LOC: LAB 06:07
PROVIDERS: ATTEND Internal Medicine Hematology & Oncology
DX: D50.8 Other iron deficiency anemias (principal); I10 Essential (primary) hypertension; R74.02 Elevation of levels of lactic acid dehydrogenase [LDH]; K76.89 Other specified diseases of liver; C90.00 Multiple myeloma not having achieved remission; Z94.81 Bone marrow transplant status; D51.1 Vitamin B12 deficiency anemia due to selective vitamin B12 malabsorption with proteinuria; D51.3 Other dietary vitamin B12 deficiency anemia; D63.1 Anemia in chronic kidney disease; N18.30 Chronic kidney disease, stage 3 unspecified; D47.2 Monoclonal gammopathy; I67.89 Other cerebrovascular disease; I69.352 Hemiplegia and hemiparesis following cerebral infarction affecting left dominant side; I67.9 Cerebrovascular disease, unspecified

== ENCOUNTER → 2024-12-17 06:09 | Outpatient (CLI) | payer OTHER ==
[2024-12-17 07:21] LABS: BASO % 0.2 % (0.1-1.2); EOS # 0.11 (0.04-0.54); EOS % 2.3 % (0.7-7.0); LYMPH # 0.72 (1.18-3.74); LYMPH % 15.0 % (19.3-53.1); MEAN PLATELET VOLUME 11.80 fl (9.4-12.4); MONO # 0.80 (0.24-0.82); NEUT # 3.14 (1.56-6.13); NEUT % 65.3 % (34.0-71.1); RED CELL DISTRIBUTION WIDTH 16.2 % (11.6-14.4)
[2024-12-17 07:27] LABS: MONO % 16.6 % (4.7-12.5)
[2024-12-17 07:49] LABS: ALT/SGPT 29.0 U/L (12-78); AST/SGOT 8.0 U/L (15-37); BILIRUBIN TOTAL 0.91 mg/dL (0.3-1.2); BUN CREA RATIO 15.0 (7.0-25.0); CREATININE SERUM 1.42 mg/dL (0.70-1.30); GFR 48.87; GLOBULINA 3.7 G/DL (2.4-3.5); GLUCOSE FASTING 156.0 mg/dL (65-100); LDH 159.0 U/L (87-241); OSMOLALITY SERUM 289.0 MOSM/KG (275-295)
[2024-12-18 17:08] LABS: kappa lambda r 0.04 (0.26-1.65); kappa light 1.9 mg/L (3.3-19.4)
[2024-12-19 17:08] LABS: BETA-2-MICROGLOBULINA 2.8 mg/L (0.6-2.4)
[2024-12-19 19:12] LABS: albu 25.4 % (.); alph 2 20.4 % (.); gam 21.7 % (.); m spi 9.8 % (Not Observed)
[2024-12-20 13:08] LABS: IMM A 1026 mg/dL (61-437); IMM G 321 mg/dL (603-1613); IMM M 6 mg/dL (15-143); a:g ratio 1.2 (0.7-1.7); alpha 1 g 0.3 g/dL (0.0-0.4); beta g 1.8 g/dL (0.7-1.3); gamma g 0.3 g/dL (0.4-1.8); globulin t 3.1 g/dL (2.2-3.9); prot total 6.7 g/dL (6.0-8.5)
== END | disposition home or self-care (01) ==
LOC: LAB 06:09
PROVIDERS: ATTEND Internal Medicine Hematology & Oncology
DX: C90.00 Multiple myeloma not having achieved remission (principal); C79.52 Secondary malignant neoplasm of bone marrow; Z94.81 Bone marrow transplant status; D51.1 Vitamin B12 deficiency anemia due to selective vitamin B12 malabsorption with proteinuria; D51.3 Other dietary vitamin B12 deficiency anemia; I10 Essential (primary) hypertension; D63.1 Anemia in chronic kidney disease; N18.30 Chronic kidney disease, stage 3 unspecified; D47.2 Monoclonal gammopathy; I67.89 Other cerebrovascular disease; I69.352 Hemiplegia and hemiparesis following cerebral infarction affecting left dominant side; I67.9 Cerebrovascular disease, unspecified; D50.8 Other iron deficiency anemias; R74.02 Elevation of levels of lactic acid dehydrogenase [LDH]; K76.89 Other specified diseases of liver; D63.8 Anemia in other chronic diseases classified elsewhere

== ENCOUNTER 2025-01-30 06:12 | Outpatient (CLI) | payer OTHER ==
[2025-01-30 07:15] LABS: URINE APPEARANCE Clear; URINE BILIRRUBIN Negative (NEGATIVE); URINE BLOOD Negative; URINE COLOR Yellow; URINE KETONE Negative (NEGATIVE); URINE LEUKOCYTE Negative; URINE NITRATE Negative; URINE PROTEIN 30 (NEGATIVE); URINE UROBILINOGEN 1.0 E.U./dl
[2025-01-30 07:17] LABS: URINE BACTERIA 26.3 uL (0.0-1933); URINE EPITHELIAL CELLS 2.7 uL (0.0-38.8); URINE WBC 4.1 uL (0.0-23.2)
[2025-01-30 07:23] LABS: URINE CAST 0.00 uL (0.0-1.40); URINE GLUCOSE 250 MG/DL (NEGATIVE); URINE RBC 1.3 uL (0.0-20.8)
[2025-01-30 07:24] LABS: BASO % 0.6 % (0.1-1.2); EOS # 0.11 (0.04-0.54); EOS % 3.3 % (0.7-7.0); LYMPH # 0.94 (1.18-3.74); LYMPH % 28.0 % (19.3-53.1); MEAN PLATELET VOLUME 10.10 fl (9.4-12.4); MONO # 0.66 (0.24-0.82); NEUT # 1.61 (1.56-6.13); NEUT % 47.9 % (34.0-71.1); RED CELL DISTRIBUTION WIDTH 16.2 % (11.6-14.4)
[2025-01-30 07:33] LABS: MONO % 19.6 % (4.7-12.5)
[2025-01-30 07:54] LABS: INR 0.98
[2025-01-30 08:00] LABS: ALT/SGPT 26.0 U/L (12-78); AST/SGOT 8.0 U/L (15-37); BILIRUBIN TOTAL 0.88 mg/dL (0.3-1.2); BUN CREA RATIO 17.0 (7.0-25.0); CREATININE SERUM 1.25 mg/dL (0.70-1.30); FE 81.0 ug/dl (65-175); GFR 56.62; GLOBULINA 3.2 G/DL (2.4-3.5); GLUCOSE FASTING 151.0 mg/dL (65-100); LDH 159.0 U/L (87-241); OSMOLALITY SERUM 293.0 MOSM/KG (275-295)
[2025-01-30 11:17] LABS: FOLIC ACID 11.97 ng/ml (4.78-20)
== END 2025-01-30 06:19 | disposition home or self-care (01) ==
LOC: LAB 06:12
PROVIDERS: ATTEND Internal Medicine Hematology & Oncology
DX: D50.8 Other iron deficiency anemias (principal); I10 Essential (primary) hypertension; R74.02 Elevation of levels of lactic acid dehydrogenase [LDH]; K76.89 Other specified diseases of liver; D51.8 Other vitamin B12 deficiency anemias; C79.52 Secondary malignant neoplasm of bone marrow; C90.00 Multiple myeloma not having achieved remission; Z94.81 Bone marrow transplant status; D51.1 Vitamin B12 deficiency anemia due to selective vitamin B12 malabsorption with proteinuria; D51.3 Other dietary vitamin B12 deficiency anemia; D63.1 Anemia in chronic kidney disease; N18.30 Chronic kidney disease, stage 3 unspecified; D47.2 Monoclonal gammopathy; I67.89 Other cerebrovascular disease; I69.352 Hemiplegia and hemiparesis following cerebral infarction affecting left dominant side; I67.9 Cerebrovascular disease, unspecified; T82.514D Breakdown (mechanical) of infusion catheter, subsequent encounter

== ENCOUNTER → 2025-02-24 06:06 | Outpatient (CLI) | payer OTHER ==
[2025-02-24 07:28] LABS: BASO % 0.0 % (0.1-1.2); EOS # 0.04 (0.04-0.54); EOS % 0.9 % (0.7-7.0); LYMPH # 1.15 (1.18-3.74); LYMPH % 25.6 % (19.3-53.1); MEAN PLATELET VOLUME 12.10 fl (9.4-12.4); MONO # 0.55 (0.24-0.82); NEUT # 2.70 (1.56-6.13); NEUT % 60.0 % (34.0-71.1); RED CELL DISTRIBUTION WIDTH 16.1 % (11.6-14.4)
[2025-02-24 07:57] LABS: MONO % 12.2 % (4.7-12.5)
[2025-02-24 07:58] LABS: BAND MAN 4.0 %; LYMPHOCYTE MAN 33.0 %; MONOCYTE MAN 5.0 %; NEUTROPHILS MAN 55.0 %
[2025-02-24 08:11] LABS: ALT/SGPT 34.0 U/L (12-78); AST/SGOT 14.0 U/L (15-37); BILIRUBIN TOTAL 1.21 mg/dL (0.3-1.2); BUN CREA RATIO 14.0 (7.0-25.0); CREATININE SERUM 1.5 mg/dL (0.70-1.30); GFR 45.87; GLOBULINA 5.0 G/DL (2.4-3.5); GLUCOSE FASTING 143.0 mg/dL (65-100); LDH 255.0 U/L (87-241); OSMOLALITY SERUM 292.0 MOSM/KG (275-295)
[2025-02-25 14:11] LABS: kappa lambda r 0.01 (0.26-1.65); kappa light 1.0 mg/L (3.3-19.4)
[2025-02-26 18:07] LABS: BETA-2-MICROGLOBULINA 3.8 mg/L (0.6-2.4); IMM A 2261 mg/dL (61-437); IMM G 296 mg/dL (603-1613); IMM M < 5 mg/dL (15-143); a:g ratio 0.9 (0.7-1.7); alpha 1 g 0.3 g/dL (0.0-0.4); beta g 3.2 g/dL (0.7-1.3); gamma g 0.3 g/dL (0.4-1.8); globulin t 4.3 g/dL (2.2-3.9); prot total 8.1 g/dL (6.0-8.5)
[2025-02-26 20:11] LABS: albu 24.1 % (.); alph 2 16.4 % (.); gam 28.9 % (.)
== END | disposition home or self-care (01) ==
LOC: LAB 06:06
PROVIDERS: ATTEND Internal Medicine Hematology & Oncology
DX: C90.00 Multiple myeloma not having achieved remission (principal); C79.52 Secondary malignant neoplasm of bone marrow; Z94.81 Bone marrow transplant status; D51.1 Vitamin B12 deficiency anemia due to selective vitamin B12 malabsorption with proteinuria; D51.3 Other dietary vitamin B12 deficiency anemia; I10 Essential (primary) hypertension; D63.1 Anemia in chronic kidney disease; N18.30 Chronic kidney disease, stage 3 unspecified; D47.2 Monoclonal gammopathy; I67.89 Other cerebrovascular disease; I69.352 Hemiplegia and hemiparesis following cerebral infarction affecting left dominant side; I67.9 Cerebrovascular disease, unspecified; D63.8 Anemia in other chronic diseases classified elsewhere; D50.8 Other iron deficiency anemias; R74.02 Elevation of levels of lactic acid dehydrogenase [LDH]; K76.89 Other specified diseases of liver

== ENCOUNTER 2025-03-04 11:00 | Day surgery (SDC) | payer OTHER ==
[2025-02-05 10:47] VITALS: BP 139/76
[2025-02-27 07:28] LABS: URINE APPEARANCE Clear; URINE BILIRRUBIN Negative (NEGATIVE); URINE BLOOD Negative; URINE COLOR Yellow; URINE GLUCOSE Negative (NEGATIVE); URINE KETONE Negative (NEGATIVE); URINE LEUKOCYTE Negative; URINE NITRATE Negative; URINE PROTEIN Trace (NEGATIVE); URINE UROBILINOGEN 0.2 E.U./dl
[2025-02-27 07:30] LABS: BASO % 0.0 % (0.1-1.2); EOS # 0.06 (0.04-0.54); EOS % 1.3 % (0.7-7.0); LYMPH # 1.08 (1.18-3.74); LYMPH % 24.2 % (19.3-53.1); MEAN PLATELET VOLUME 11.80 fl (9.4-12.4); MONO # 0.63 (0.24-0.82); NEUT # 2.66 (1.56-6.13); NEUT % 59.7 % (34.0-71.1); RED CELL DISTRIBUTION WIDTH 16.1 % (11.6-14.4)
[2025-02-27 07:32] LABS: URINE BACTERIA 19.1 uL (0.0-1933)
[2025-02-27 07:42] LABS: URINE CAST 0.87 uL (0.0-1.40); URINE EPITHELIAL CELLS 1.0 uL (0.0-38.8); URINE RBC 1.9 uL (0.0-20.8); URINE WBC 1.5 uL (0.0-23.2)
[2025-02-27 07:58] LABS: ALT/SGPT 31.0 U/L (12-78); AST/SGOT 16.0 U/L (15-37); BILIRUBIN TOTAL 0.97 mg/dL (0.3-1.2); BUN CREA RATIO 20.0 (7.0-25.0); CREATININE SERUM 1.45 mg/dL (0.70-1.30); GFR 47.7; GLOBULINA 4.5 G/DL (2.4-3.5); GLUCOSE FASTING 136.0 mg/dL (65-100); OSMOLALITY SERUM 291.0 MOSM/KG (275-295)
[2025-02-27 07:59] LABS: MONO % 14.1 % (4.7-12.5)
[2025-02-27 08:10] LABS: INR 1.01
[~2025-03-04] VITALS: Ht 181.6 cm; Wt 86.2 kg
[2025-03-04] MEDS ORDERED: CEFAZOLIN SODIUM 1,000 MG VIAL IV ONE (14:15)
[2025-03-04] MEDS ORDERED: LIDOCAINE HCL 1% 20 ML VIAL IJ ONE ×2 (14:30)
[2025-03-04] MEDS ORDERED: HEPARIN SODIUM,PORCINE 500 UNITS/5 ML VIAL IV ONE (14:45)
[2025-03-04] MEDS ORDERED: CEFAZOLIN SODIUM 1,000 MG VIAL IV SCH (16:00)
== END 2025-03-04 16:30 | disposition home or self-care (01) ==
LOC: CIR.AMB 11:00
PROVIDERS: ATTEND Specialist
DX: T82.514D Breakdown (mechanical) of infusion catheter, subsequent encounter (principal); C90.00 Multiple myeloma not having achieved remission

== ENCOUNTER → 2025-03-18 09:50 | Outpatient (CLI) | payer OTHER | END | disposition home or self-care (01) | LOC: NUCLEAR 09:50 | PROVIDERS: ATTEND Internal Medicine Hematology & Oncology | DX: I82.629 Acute embolism and thrombosis of deep veins of unspecified upper extremity (principal) ==

== ENCOUNTER 2025-04-09 06:07 | Outpatient (CLI) | payer OTHER ==
[2025-04-09 06:47] LABS: BASO % 0.1 % (0.1-1.2); EOS # 0.01 (0.04-0.54); EOS % 0.1 % (0.7-7.0); LYMPH # 0.70 (1.18-3.74); LYMPH % 7.1 % (19.3-53.1); MEAN PLATELET VOLUME 10.90 fl (9.4-12.4); MONO # 0.91 (0.24-0.82); MONO % 9.2 % (4.7-12.5); NEUT # 8.17 (1.56-6.13); NEUT % 82.6 % (34.0-71.1); RED CELL DISTRIBUTION WIDTH 16.6 % (11.6-14.4)
[2025-04-09 07:15] LABS: ALT/SGPT 107.0 U/L (12-78); AST/SGOT 38.0 U/L (15-37); BAND MAN 4.0 %; BILIRUBIN TOTAL 0.54 mg/dL (0.3-1.2); BUN CREA RATIO 19.0 (7.0-25.0); CREATININE SERUM 1.52 mg/dL (0.70-1.30); FE 89.0 ug/dl (65-175); GFR 45.18; GLOBULINA 4.5 G/DL (2.4-3.5); GLUCOSE FASTING 190.0 mg/dL (65-100); LDH 163.0 U/L (87-241); LYMPHOCYTE MAN 11.0 %; MONOCYTE MAN 1.0 %; NEUTROPHILS MAN 84.0 %; OSMOLALITY SERUM 298.0 MOSM/KG (275-295)
[2025-04-09 10:03] LABS: FOLIC ACID > 20.00 ng/ml (4.78-20)
[2025-04-14] MEDS ORDERED: DIABETIC TUSSI118 M3 PO (23:29)
[2025-04-14] MEDS ORDERED: OSEL75CA PO (23:29)
== END 2025-04-09 06:13 | disposition home or self-care (01) ==
LOC: LAB 06:07
PROVIDERS: ATTEND Internal Medicine Hematology & Oncology
DX: D50.8 Other iron deficiency anemias (principal); I10 Essential (primary) hypertension; C90.00 Multiple myeloma not having achieved remission; C79.52 Secondary malignant neoplasm of bone marrow; Z94.81 Bone marrow transplant status; D51.1 Vitamin B12 deficiency anemia due to selective vitamin B12 malabsorption with proteinuria; D51.3 Other dietary vitamin B12 deficiency anemia; D63.1 Anemia in chronic kidney disease; N18.30 Chronic kidney disease, stage 3 unspecified; D47.2 Monoclonal gammopathy; I67.89 Other cerebrovascular disease; I69.352 Hemiplegia and hemiparesis following cerebral infarction affecting left dominant side; I67.9 Cerebrovascular disease, unspecified